=== PATIENT | female | born 1970 | race Caucasian/White ===

== ENCOUNTER → 2017-10-07 16:38 | Outpatient (CLI) | payer OTHER, SELFPAY | PROVIDERS: Family Provider Family Medicine; PCP Family Medicine; Visit Provider Nurse Practitioner Women's Health | DX: N76.0 Acute vaginitis (principal) | CPT/HCPCS: 87070; 87205 ==

== ENCOUNTER → 2017-10-08 08:52 | Outpatient (CLI) | payer OTHER, SELFPAY ==
[2017-10-08 10:15] LABS: Glucose 247 mg/dL (74-106)
[2017-10-08 10:17] LABS: Hemoglobin A1c 10.8 % (4.2-6.3)
== END ==
PROVIDERS: Family Provider Family Medicine; PCP Family Medicine; Visit Provider Nurse Practitioner Women's Health
DX: R81 Glycosuria (principal)
CPT/HCPCS: 36415; 82947; 83036

== ENCOUNTER → 2017-10-11 12:37 | Outpatient (CLI) | payer OTHER, SELFPAY ==
[2017-10-11 14:43] LABS: Microalbumin,Random Urine 22.2 mg/L (NO RANGE EST.); Microalbumin:Creatinine Ratio 10.7 mg/g CRE (<30 mg/g CRE)
[2017-10-11 14:44] LABS: AST(SGOT) 25 U/L (15-37); Alanine Aminotransfer ALT/SGPT 38 U/L (13-56); Albumin, Serum 3.7 g/dL (3.2-5.0); Alkaline Phosphatase 53 U/L (45-117); Anion Gap 6 (5-15); BUN 11 mg/dL (7-18); Bilirubin, Direct 0.18 mg/dL (0.00-0.30); Calcium,Total 8.5 mg/dL (8.5-10.1); Chloride 106 mmol/L (98-107); Cholesterol 118 mg/dL (200); Creatinine, Serum 0.85 mg/dL (0.55-1.02); EST Glomerular Filtration Rate 76 mL/min (>60); Est Glom Filt Rate - Afr Amer 92 mL/min (>60); Globulin 3.7 g/dL (2.2-4.2); Glucose 161 mg/dL (74-106); High Density Lipoprotein 48 mg/dL; Potassium 3.5 mmol/L (3.5-5.1); Protein, Total 7.4 g/dL (6.4-8.2); Sodium Level 140 mmol/L (136-145); Thyroid Stim Hormone (TSH) 1.85 uIU/mL (0.358-3.74); Triglycerides 52 mg/dL; Very Low Density Lipoprotein 10 mg/dL (5-40)
== END ==
PROVIDERS: Family Provider Family Medicine; PCP Family Medicine; Visit Provider Family Medicine
DX: E11.9 Type 2 diabetes mellitus without complications (principal)
CPT/HCPCS: 36415; 80048; 80061; 80076; 82043; 82570; 84443

== ENCOUNTER → 2018-01-07 10:22 | Outpatient (CLI) | payer OTHER, SELFPAY ==
[2018-01-07 12:03] LABS: Hemoglobin A1c 6.3 % (4.2-6.3)
== END ==
PROVIDERS: Family Provider Family Medicine; PCP Family Medicine; Visit Provider Nurse Practitioner
DX: E11.9 Type 2 diabetes mellitus without complications (principal)
CPT/HCPCS: 36415; 83036

== ENCOUNTER → 2019-08-03 09:23 | Outpatient (CLI) | payer OTHER, SELFPAY ==
[2017-12-23 13:32] VITALS: BMI 33.0
[2019-08-03 11:11] LABS: AST(SGOT) 14 U/L (15-37); Alanine Aminotransfer ALT/SGPT 22 U/L (13-56); Albumin, Serum 3.5 g/dL (3.2-5.0); Alkaline Phosphatase 51 U/L (45-117); Anion Gap 5 (5-15); BUN 18 mg/dL (7-18); BUN/Creat Ratio 26.4 RATIO (10-20); Calcium,Total 8.3 mg/dL (8.5-10.1); Chloride 110 mmol/L (98-107); Cholesterol 127 mg/dL (200); Creatinine, Serum 0.68 mg/dL (0.55-1.02); EST Glomerular Filtration Rate 97 mL/min (>60); Est Glom Filt Rate - Afr Amer 118 mL/min (>60); Globulin 3.5 g/dL (2.2-4.2); Glucose 199 mg/dL (74-106); High Density Lipoprotein 51 mg/dL; Sodium Level 140 mmol/L (136-145); Triglycerides 47 mg/dL; Very Low Density Lipoprotein 9 mg/dL (5-40)
[2019-08-03 11:16] LABS: Hemoglobin A1c 10.7 % (4.2-6.3)
== END ==
PROVIDERS: PCP Family Medicine; Referring Provider Family Medicine; Visit Provider Nurse Practitioner
DX: E11.9 Type 2 diabetes mellitus without complications (principal)
CPT/HCPCS: 36415; 80053; 80061; 82043; 83036

== ENCOUNTER 2020-02-27 19:44 | Inpatient (IN) | payer OTHER, SELFPAY ==
[2020-02-27 19:45] VITALS: BP 144/95; PULSE 121; RESP 18; TEMP 36.4; O2SAT 98; BMI 33.5
[2020-02-27] MEDS: 0.9% Normal Saline 1,000 ML 1000 ML IV ×2 (20:04→21:04)
[2020-02-27 20:23] LABS: Absolute Lymphocyte Count 0.91 X10^3/uL (0.83-4.51); Absolute Neutrophil Count 4.9 X10^3/uL (2.0-7.7); Basophil# 0.04 X10^3/uL; Basophil% 0.6 % (0-1); Eosinophil# 0.04 X10^3/uL; Eosinophils% 0.6 % (0-5); Hematocrit 36.2 % (37-47); Hemoglobin 10.6 g/dL (12.0-15.0); Lymphocyte # 0.91 X10^3/ul (4.0); Lymphocyte % 13.4 % (19-41); Mean Corp Hgb Conc 29.3 g/dL (32-36); Mean Corpuscular Hgb 22.6 pg (27.0-32.0); Mean Corpuscular Volume 77.2 fL (81-99); Mean Platelet Vol. 9.3 fl (6.2-12.0); Monocyte# 0.91 X10^3/uL; Monocyte% 13.4 % (0-10); NRBC Flagged by Analyzer 0 % (0-5); Neutrophil # 4.89 X10^3/uL (2.7-7.7); Neutrophil % 71.7 % (47-70); Platelet Count 260 K/mm3 (150-450); RBC Distribution Width CV 15.8 % (11.6-14.6); RBC Distribution Width SD 42.5 fl (35.1-43.9); Red Blood Count 4.69 M/mm3 (4.2-5.4); White Blood Count 6.8 K/mm3 (4.4-11.0)
[2020-02-27] MEDS: Ondansetron 4 MG/2 ML Vial IV (20:24)
[2020-02-27 20:36] LABS: Bedside Glucose 252 mg/dL (70-110)
[2020-02-27 20:37] LABS: ALB/GLOB Ratio 0.8 RATIO (0.9-2.4); AST(SGOT) 380 U/L (15-37); Alanine Aminotransfer ALT/SGPT 581 U/L (13-56); Albumin, Serum 3.6 g/dL (3.2-5.0); Alkaline Phosphatase 190 U/L (45-117); Anion Gap 7 (5-15); BUN 9 mg/dL (7-18); BUN/Creat Ratio 13.5 RATIO (10-20); Calcium,Total 8.7 mg/dL (8.5-10.1); Chloride 104 mmol/L (98-107); Creatinine, Serum 0.67 mg/dL (0.55-1.02); EST Glomerular Filtration Rate 100 mL/min (>60); Est Glom Filt Rate - Afr Amer 121 mL/min (>60); Estimated Creatinine Clearance 95.08 ml/min; Globulin 4.3 g/dL (2.2-4.2); Glucose 234 mg/dL (74-106); Lipase 7043 U/L (73-393); Potassium 3.4 mmol/L (3.5-5.1); Protein, Total 7.9 g/dL (6.4-8.2); Sodium Level 137 mmol/L (136-145)
--- NOTE | 2020-02-27 20:57 | ED.VISSUMM ---
- ER Visit Summary Date of Service: 02/27/20 Chief Complaint: Nausea and vomiting History of Present Illness: The patient is a [address] Lee. She reports she is been nauseated and vomiting over the past 3 days. States this is occurring approximately 2 times a day. No blood in her emesis. She reports she is a cramping epigastric pain was 10 at 10 at worst and 4-10 currently. Is worsened by nothing. She relieved by Ex-Lax. She reports that she feels constipated. She has small bowel movements sporadically. Last of these was yesterday. No blood in her stools. No dysuria or frequency. Patient reports has had similar symptoms previously with constipation. She denies any fatty food intolerance. She rarely drinks alcohol. Physical Examination: Vitals: Stable. Afebrile. General: Well-nourished and well-developed. Head: Normocephalic atraumatic. Neck: Supple, no lymphadenopathy. No JVD. Nontender. Cardiovascular: Tachycardic regular rhythm. No murmurs. Respiratory: No respiratory distress. Clear to auscultation bilaterally. Abdominal: Soft, moderate epigastric tenderness. No right upper quadrant tenderness palpation. No Diaz sign. Nondistended, normal bowel sounds. No guarding, rebound, or peritoneal signs. Back: Nontender. Extremities: Nontender, no edema. Skin: Normal color, no rash. Neurologic: Alert and oriented ?3. Cranial nerves II through XII are intact. Normal strength and sensation. Psych: Normal affect. Test Results: CBC shows an H&H 10.6 and 36.2, 7 neutrophils 72, 1/13, monocytes 13. Chem-7 shows potassium 3.4 and glucose 234. LFTs show globulin of 4.3, total bili of 3.10, alk phos 190, ALT of 581, AST of 380. Lipase is 7043. Clinical Impression(s) from Imaging Studies Gallbladder Ultrasound 02/27/20 21:19 IMPRESSION: Gallstones and sludge within the gallbladder with no associated gallbladder wall thickening, pericholecystic fluid or reported sonographic Diaz''s sign. Electronically Signed: Frances Davidson MD at 23:21 EDT Tel , Service support , Emergency Department Course and Treatment: Patient was given 2 L of normal saline. She was given Zofran IV. She refused pain medications. She was given a dose of cefotetan IV. Treatment Plan: Patient was discussed with Dr. Botello and Dr. Riddle. Her labs are consistent with choledocholithiasis. She will be admitted to the hospital with plan to take her to the operating room tomorrow morning. Disposition: Admitted in improved condition. Impression: 1. Pancreatitis. 2. Choledocholithiasis. This note was generated with [employer] dictation software. It may contain incorrect words, spelling, and punctuation that were not noted in review of the chart prior to signing ED Disposition - Plan for ED Patient: Disposition: Acute Care Hospital [facility]
--- NOTE | 2020-02-27 21:09 | PCM.HP.STD ---
Problem List (1) Acute gallstone pancreatitis Status: Acute (2) Type 2 diabetes mellitus without complication, without long-term current use of insulin Status: Chronic Comment: Doing very well. Diet and exercise as discussed. Is pleased as well as she should be with her progress. no change is needed.Will update lab. contnue with current regimen. BP in range History of Present Illness Date of Admission: 02/27/20 Chief Complaint: Abdominal pain for 3 days The patient is a 49 year old F with history of type 2 diabetes mellitus on metformin came to ER with severe abdominal pain mainly in epigastrium for 3 days. Patient has history of intermittent abdominal discomfort for past 3 to 4 months, mild which she ignores and does not remember well. But for past 3 days it has been severe, intermittent 7-10/10 intensity with radiation to back. She denies regular alcohol drinking habit. She never had gallbladder issues in the past. In the ER, she was found tachycardic, heart rate 121 bpm, blood pressure 144/95 no fever. She denies known exposure to COVID-19 person or attending large gathering or travel. No fever, cough or shortness of breath. Significant abnormal labs in the ER are live page 7043, total bili 3.1, ALT 591, AST 380, alkaline phosphatase 190 and glucose 234. K3.4. No leukocytosis or thrombocytopenia. H&H 10.6/36. Discussed with the surgeon Dr. Botello and advised urgent right upper quadrant sonogram and ERCP tomorrow morning. [] Past Medical History Past Medical History (Chronic Problems): Chronic Problems (Last Reviewed 12/23/17 @ 13:31 by Rolanda Vieyra) Type 2 diabetes mellitus without complication, without long-term current use of insulin (Chronic) Doing very well. Diet and exercise as discussed. Is pleased as well as she should be with her progress. no change is needed.Will update lab. contnue with current regimen. BP in range Medical History: Medical History (Last Reviewed 12/23/17 @ 13:31 by Rolanda Vieyra) Chronic headaches R51 Hearing problem H91.90 Seasonal allergies J30.2 Type 2 diabetes mellitus E11.9 Dx : 10/16 Last exacerbation : DKA : never Hypoglycemic episode : never ER visit : never Vision problem H54.7 Allergies No Known Allergies Allergy (Unverified 02/27/20 19:48) Home Medications: Ambulatory Orders Medication Instructions Recorded metformin 500 mg tablet 500 mg PO BID 11/07/17 Smoking Status: Never smoker Tobacco Use: Non-smoker Alcohol: Rare Drugs: None - *Family History Paternal Family History: Family History (Last Reviewed 12/23/17 @ 13:31 by Rolanda Vieyra) Mother Diabetes Heart disease Arthritis CVA (cerebral vascular accident) Brother Diabetes Father CVA (cerebral vascular accident) History Items: No pertinent history - No pertinent history of GI issues including CA colon, CA pancreas/liver in first-degree family relative Review of Systems Constitutional: Reports: Chills. Denies: Fever HEENT: Denies: Head Aches, Sinus Congestion, Sinus Drainage Cardiovascular: Denies: Chest Pain, Palpitations Respiratory: Denies: Cough, Shortness of breath at rest, Sputum production Gastrointestinal: Reports: Abdominal Pain, Constipation - Patient history of on and off constipation, chronic in nature, Nausea, Vomiting - Intermittent vomiting, bilious in nature for 2 to 3 days. Denies: Diarrhea, Hematemesis, Hematochezia, Melena Genitourinary: Denies: Dysuria, Frequency, Hesitancy Musculoskeletal: Denies: Joint Pain, Joint Tenderness Skin: Denies: Rash, Wounds Neurological: Denies: Numbness, Tingling, Focal weakness Psychiatric: Denies: Anxiety, Depression, Homicidal Ideations, Suicidal Ideations Hematologic/ Lymphatic: Denies: Easy Bruising, Easy Bleeding VTE Information - Inpt Only VTE Present on Admission: No VTE Mechan Device Prophylaxis: SCD's VTE Pharm Prophylaxis ordered?: Yes Patient Problems: Active and Suspected Problems (Last Reviewed 12/23/17 @ 13:31 by Rolanda Vieyra) Acute gallstone pancreatitis (Acute) - Physical Exam Vitals/I&O's: Vital Signs Temp Pulse Resp BP Pulse Ox 97.6 F L 121 H 18 144/95 H 98 02/27/20 19:45 02/27/20 19:45 02/27/20 19:45 02/27/20 19:45 02/27/20 19:45 Oxygen Delivery Method Room Air Weight: 207 lb 10.807 oz Body Mass Index (BMI) 33.5 Finger Stick Blood Glucose 252 General: Alert, Oriented x3, Cooperative HEENT: Atraumatic, PERRLA, EOMI, Normocephalic Neck: Supple, No JVD, Negative Carotid Bruits Lungs: Clear to auscultation, Normal air movement, No rhonchi, No wheeze, No rales Cardiovascular: Regular Rhythm, Normal S1, Normal S2, No murmurs, Tachycardic Abdomen: Bowel Sounds Present, Soft, Hypoactive Bowel Sounds, Tender - Tenderness present in epigastrium and right upper quadrant on deep palpation. Extremities: No edema, Capillary Refill Less than 3 Seconds Skin: No rashes, No breakdown Musculoskeletal: No Tenderness to Palpation of Joints or Extremities Neurological: Cranial nerves II-XII grossly intact, Deep Tendon Reflexes 2+/4 and Symmetrical, Neuro grossly intact, Motor Exam 5/5 strength throughout Psych/Mental Status: Normal Affect, Appropriate Laboratory Results 02/27/20 20:12: WBC 6.8, RBC 4.69, Hgb 10.6 L, Hct 36.2 L, MCV 77.2 L, MCH 22.6 L, MCHC 29.3 L, RDW Std Deviation 42.5, RDW Coeff of Munir 15.8 H, Plt Count 260, MPV 9.3, Immature Gran % (Auto) 0.300, Neut % (Auto) 71.7 H, Lymph % (Auto) 13.4 L, [place] % (Auto) 13.4 H, Eos % (Auto) 0.6, Baso % (Auto) 0.6, Absolute Neuts (auto) 4.9, Absolute Lymphs (auto) 0.91, Nucleated RBC % 0 02/27/20 20:12: Sodium 137, Potassium 3.4 L, Chloride 104, Carbon Dioxide 26.0, Anion Gap 7, BUN 9, Creatinine 0.67, Estim Creat Clear Calc 95.08, Est GFR (MDRD) Af Amer 121, Est GFR (MDRD) Non-Af 100, BUN/Creatinine Ratio 13.5, Glucose 234 H, Calcium 8.7, Total Bilirubin 3.10 H, AST 380 H, ALT 581 H, Alkaline Phosphatase 190 H, Total Protein 7.9, Albumin 3.6, Globulin 4.3 H, Albumin/Globulin Ratio 0.8 L, Lipase 7043 H 02/27/20 20:28: POC Glucose 252 H Current Medications Sodium Chloride () 1,000 mls @ 1,000 mls/hr IV .Q1H PENNY Stop: 02/27/20 22:04 Assessment/Plan All Active Problems (Last Reviewed 12/23/17 @ 13:31 by Rolanda Vieyra) Acute gallstone pancreatitis (Acute) The patient is a 49 year old F with history of type 2 diabetes mellitus on metformin came to ER with severe abdominal pain mainly in epigastrium for 3 days, lab findings consistent with acute pancreatitis. 1. Acute gall stone pancreatitis: [facility] Aggressive IV fluid hydration with normal saline 150 mils per hour after 2 L of normal saline bolus. Discussed with the surgeon Dr. Botello and advised urgent right upper quadrant sonogram and ERCP tomorrow morning about 7:30 AM. Patient needs to go to the OR with antibiotics cefotetan 2 g. Keep patient n.p.o. CBC and CMP tomorrow a.m. 2. Diabetes mellitus type 2, uncontrolled: Patient noticed her sugars were high for last 3 days. Last A1c 10.7% in August 2019. Accu-Chek every 6 hourly while n.p.o. with Humalog sliding scale coverage. A1c tomorrow a.m. VT prophylaxis: Heparin 5000 unit subcutaneous 1 dose now. Lovenox 40 mg subcu daily after the procedure in the evening tomorrow a.m. Bilateral SCD [] Inpatient E&M: 10029 Init Hosp L3
--- NOTE | 2020-02-27 21:19 | US_ITS ---
STUDY: ABDOMINAL ULTRASOUND - RIGHT UPPER QUADRANT REASON FOR VISIT: Female, 49 years old Cholecystitis, nausea/ vomiting x 3 days TECHNIQUE: Ultrasound evaluation of the right upper quadrant was performed with real-time and static schmidt-scale imaging. TECHNICAL QUALITY: Adequate. COMPARISON: None. FINDINGS: Liver: The liver measures 15.0 cm. There is normal echogenicity of the liver. The bile ducts are within normal limits. There is hepatic color flow. The direction of portal flow is hepatopetal. There is no demonstrated mass lesion. Gallbladder: Normal distended gallbladder. The gallbladder wall measures 1.9 mm. There is a negative sonographic Diaz''s sign. There is no pericholecystic fluid. There are gallstones and sludge within the gallbladder. Common Bile Duct (C.B.D.): The common bile duct measures 5.7 mm. Pancreas: Normal size of the head and body of the pancreas. There is obscuration of the tail the pancreas secondary to overlying bowel gas. There is normal echogenicity of the pancreas. There is no demonstrated pancreatic mass or cyst. Right Kidney: Normal size of the right kidney. The right kidney measures 12.1 cm in length. Normal renal cortex. There is no demonstrated renal mass or cyst. There is no right hydronephrosis. US/Gallbladder IMPRESSION: Gallstones and sludge within the gallbladder with no associated gallbladder wall thickening, pericholecystic fluid or reported sonographic Diaz''s sign. Electronically Signed: Frances Davidson MD at 23:21 EDT Tel , Service support ,
[2020-02-27 21:47] VITALS: BP 142/75; PULSE 114; RESP 18; O2SAT 99
[2020-02-27 22:11] LABS: Magnesium 1.9 mg/dL (1.6-2.6)
[2020-02-27 23:38] VITALS: BP 119/62; PULSE 90; RESP 20; TEMP 36.9; O2SAT 98
[2020-02-28] VITALS (11 sets, daily range): BP systolic 98–121; BP diastolic 50–75; PULSE 62–94; RESP 16–18; TEMP 35.8–37.2; O2SAT 2–100; BMI 33.5; BMI 32.8; BMI 33.7
[2020-02-28] MEDS: 0.9% Normal Saline 1,000 ML 999 ML IV (00:12)
[2020-02-28 00:15] LABS: Bedside Glucose 200 mg/dL (70-110)
[2020-02-28] MEDS: Insulin Lispro 100 UNIT/ML INSULN.PEN SC ×4 (00:38→17:04)
[2020-02-28] MEDS: Heparin Injection (Vial) 5,000 UNIT/ML VIAL 5000 UNIT SC (00:39)
[2020-02-28] MEDS: 0.9% Saline Lock 10 ML Syringe IV ×2 (00:45→05:52)
[2020-02-28] MEDS: 0.9% Normal Saline 1,000 ML 150 ML IV ×4 (01:10→22:13)
[2020-02-28 04:41] LABS: Internal QC Validated? YES +Cl - CLEAR BKGD; Pregnancy, Urine Negative Negative
[2020-02-28 04:42] LABS: Absolute Lymphocyte Count 1.24 X10^3/uL (0.83-4.51); Absolute Neutrophil Count 3.8 X10^3/uL (2.0-7.7); Basophil# 0.04 X10^3/uL; Basophil% 0.7 % (0-1); Eosinophil# 0.03 X10^3/uL; Eosinophils% 0.5 % (0-5); Hematocrit 33.3 % (37-47); Hemoglobin 9.5 g/dL (12.0-15.0); Lymphocyte # 1.24 X10^3/ul (4.0); Lymphocyte % 20.8 % (19-41); Mean Corp Hgb Conc 28.5 g/dL (32-36); Mean Corpuscular Hgb 22.4 pg (27.0-32.0); Mean Corpuscular Volume 78.5 fL (81-99); Mean Platelet Vol. 9.7 fl (6.2-12.0); Monocyte# 0.78 X10^3/uL; Monocyte% 13.1 % (0-10); NRBC Flagged by Analyzer 0 % (0-5); Neutrophil # 3.84 X10^3/uL (2.7-7.7); Neutrophil % 64.6 % (47-70); Platelet Count 237 K/mm3 (150-450); RBC Distribution Width CV 15.9 % (11.6-14.6); RBC Distribution Width SD 44.6 fl (35.1-43.9); Red Blood Count 4.24 M/mm3 (4.2-5.4)
[2020-02-28 05:07] LABS: ALB/GLOB Ratio 0.8 RATIO (0.9-2.4); AST(SGOT) 283 U/L (15-37); Alanine Aminotransfer ALT/SGPT 437 U/L (13-56); Albumin, Serum 2.8 g/dL (3.2-5.0); Alkaline Phosphatase 158 U/L (45-117); Anion Gap 7 (5-15); BUN 5 mg/dL (7-18); BUN/Creat Ratio 10.1 RATIO (10-20); Calcium,Total 7.5 mg/dL (8.5-10.1); Chloride 110 mmol/L (98-107); Cholesterol 131 mg/dL (200); EST Glomerular Filtration Rate 141 mL/min (>60); Est Glom Filt Rate - Afr Amer 170 mL/min (>60); Estimated Creatinine Clearance 132.35 ml/min; Globulin 3.5 g/dL (2.2-4.2); Glucose 195 mg/dL (74-106); High Density Lipoprotein 45 mg/dL; Potassium 3.3 mmol/L (3.5-5.1); Protein, Total 6.3 g/dL (6.4-8.2); Sodium Level 139 mmol/L (136-145); Triglycerides 109 mg/dL; Very Low Density Lipoprotein 22 mg/dL (5-40)
[2020-02-28 05:55] LABS: International Normalized Ratio 1.2; Partial Thromboplast Time 27.2 Seconds (24.1-36.2); Prothrombin Time (Protime)PT. 14.2 SECONDS (11.7-14.9)
--- NOTE | 2020-02-28 06:00 | EKG12_ITS ---
Test Reason : AM EKG Blood Pressure : / mmHG Vent. Rate : 096 BPM Atrial Rate : 096 BPM P-R Int : 148 ms QRS Dur : 094 ms QT Int : 382 ms P-R-T Axes : 069 -08 037 degrees QTc Int : 482 ms Normal sinus rhythm Prolonged QT Abnormal ECG When compared with ECG of 14-AUG-2006 19:23, Premature atrial complexes are no longer Present Confirmed by LORNE LONGO, PRESTON ([id number]), advertising editor MERE PATEL ([id number]) on 03/11/2020 1:36:06 PM Referred By: Arun Riddle Confirmed By:CALEB PRADHAN MD
[2020-02-28 06:40] LABS: Bedside Glucose 197 mg/dL (70-110)
--- NOTE | 2020-02-28 07:09 | CON.PCM_ITS ---
Problem List (1) Acute gallstone pancreatitis Status: Acute Reason for Consult Date of Consultation: 02/28/20 Reason for Consultation: Gallstone pancreatitis History of Present Illness: The patient is a 49 year old F who presents with several day history of epigastric soreness. She says that this morning is about the same as yesterday evening but that is improved from yesterday afternoon. She is currently not having any nausea or vomiting. She says she has never had gallstone issues in the past. She has no fevers or chills. She denies any cough or COVID contacts. Past Medical History Past Medical History (Chronic Problems): Chronic Problems (Last Reviewed 12/23/17 @ 13:31 by Rolanda Vieyra) Type 2 diabetes mellitus without complication, without long-term current use of insulin (Chronic) Doing very well. Diet and exercise as discussed. Is pleased as well as she should be with her progress. no change is needed.Will update lab. contnue with current regimen. BP in range Medical History: Medical History (Last Reviewed 12/23/17 @ 13:31 by Rolanda Vieyra) Chronic headaches R51 Hearing problem H91.90 Seasonal allergies J30.2 Type 2 diabetes mellitus E11.9 Dx : 10/16 Last exacerbation : DKA : never Hypoglycemic episode : never ER visit : never Vision problem H54.7 Allergies No Known Allergies Allergy (Unverified 02/27/20 19:48) Home Medications: Ambulatory Orders Medication Instructions Recorded metformin 500 mg tablet 500 mg PO BID 11/07/17 Surgical History: no surgical history Smoking Status: Never smoker Tobacco Use: Non-smoker Alcohol: Rare Drugs: None - *Family History Paternal Family History: Family History (Last Reviewed 12/23/17 @ 13:31 by Rolanda Vieyra) Mother Diabetes Heart disease Arthritis CVA (cerebral vascular accident) Brother Diabetes Father CVA (cerebral vascular accident) History Items: No pertinent history - No pertinent history of GI issues including CA colon, CA pancreas/liver in first-degree family relative Review of Systems Constitutional: Denies: Anorexia, Fever Eyes: Denies: Blurred vision HEENT: Denies: Difficulty Swallowing Cardiovascular: Denies: Chest Pain Respiratory: Denies: Cough, Shortness of Breath Gastrointestinal: Reports: Abdominal Pain. Denies: Hematemesis, Hematochezia, Nausea, Melena, Vomiting Genitourinary: Denies: Dysuria, Frequency Neurological: Denies: Balance problems Psychiatric: Denies: Anxiety, Depression Hematologic/ Lymphatic: Denies: Anemia Patient Problems: Active and Suspected Problems (Last Reviewed 12/23/17 @ 13:31 by Rolanda Vieyra) Acute gallstone pancreatitis (Acute) - Physical Exam Vitals/I&O's: Vital Signs Temp Pulse Resp BP Pulse Ox 98.1 F 78 16 114/58 L 94 02/28/20 05:34 02/28/20 05:34 02/28/20 05:34 02/28/20 05:34 02/28/20 05:34 Oxygen Delivery Method Room Air Weight: 209 lb 7.026 oz Body Mass Index (BMI) 32.8 Finger Stick Blood Glucose 252 Intake and Output for Last 24 Hours 02/26/20 02/27/20 02/28/20 23:59 23:59 23:59 Intake Total 1999 1000 / 1000 Output Total 400 / 400 Balance 1999 600 / 600 General: Alert, Oriented x3 Neck: No JVD Lungs: Normal air movement Cardiovascular: Regular rate, Regular Rhythm Abdomen: Soft, Non-Distended, Tender - Mild tenderness to deep palpation in the epigastric region Musculoskeletal: No Muscle Wasting Neurological: Cranial nerves II-XII grossly intact Psych/Mental Status: Normal Affect, Appropriate Laboratory Results 02/27/20 20:12: WBC 6.8, RBC 4.69, Hgb 10.6 L, Hct 36.2 L, MCV 77.2 L, MCH 22.6 L, MCHC 29.3 L, RDW Std Deviation 42.5, RDW Coeff of Munir 15.8 H, Plt Count 260, MPV 9.3, Immature Gran % (Auto) 0.300, Neut % (Auto) 71.7 H, Lymph % (Auto) 13.4 L, [place] % (Auto) 13.4 H, Eos % (Auto) 0.6, Baso % (Auto) 0.6, Absolute Neuts (auto) 4.9, Absolute Lymphs (auto) 0.91, Nucleated RBC % 0 02/27/20 20:12: Sodium 137, Potassium 3.4 L, Chloride 104, Carbon Dioxide 26.0, Anion Gap 7, BUN 9, Creatinine 0.67, Estim Creat Clear Calc 95.08, Est GFR (MDRD) Af Amer 121, Est GFR (MDRD) Non-Af 100, BUN/Creatinine Ratio 13.5, Glucose 234 H, Calcium 8.7, Total Bilirubin 3.10 H, AST 380 H, ALT 581 H, Alkaline Phosphatase 190 H, Total Protein 7.9, Albumin 3.6, Globulin 4.3 H, Albumin/Globulin Ratio 0.8 L, Lipase 7043 H 02/27/20 20:12: Magnesium 1.9 02/27/20 20:28: POC Glucose 252 H 02/28/20 00:07: POC Glucose 200 H 02/28/20 04:02: Urine Test Negative 02/28/20 04:10: WBC 6.0, RBC 4.24, Hgb 9.5 L, Hct 33.3 L, MCV 78.5 L, MCH 22.4 L , MCHC 28.5 L, RDW Std Deviation 44.6 H, RDW Coeff of Munir 15.9 H, Plt Count 237, MPV 9.7, Immature Gran % (Auto) 0.300, Neut % (Auto) 64.6, Lymph % (Auto) 20.8, [place] % (Auto) 13.1 H, Eos % (Auto) 0.5, Baso % (Auto) 0.7, Absolute Neuts (auto) 3.8, Absolute Lymphs (auto) 1.24, Nucleated RBC % 0 02/28/20 04:10: Sodium 139, Potassium 3.3 L, Chloride 110 H, Carbon Dioxide 22.0, Anion Gap 7, BUN 5 L, Creatinine 0.50 L, Estim Creat Clear Calc 132.35, Est GFR (MDRD) Af Amer 170, Est GFR (MDRD) Non-Af 141, BUN/Creatinine Ratio 10.1, Glucose 195 H, Calcium 7.5 L, Total Bilirubin 3.00 H, AST 283 H, ALT 437 H , Alkaline Phosphatase 158 H, Total Protein 6.3 L, Albumin 2.8 L, Globulin 3.5, Albumin/Globulin Ratio 0.8 L, Triglycerides 109, Cholesterol 131, LDL Cholesterol 64, VLDL Cholesterol 22, HDL Cholesterol 45 02/28/20 04:10: Hemoglobin A1c Pending 02/28/20 04:10: PT 14.2, INR 1.2, APTT 27.2 02/28/20 05:37: POC Glucose 197 H Clinical Impression(s) from Imaging Studies Gallbladder Ultrasound 02/27/20 21:19 IMPRESSION: Gallstones and sludge within the gallbladder with no associated gallbladder wall thickening, pericholecystic fluid or reported sonographic Diaz''s sign. Electronically Signed: Frances Davidson MD at 23:21 EDT Tel , Service support , Current Medications Acetaminophen (Tylenol) 650 mg PO Q6H PRN PRN PRN Reason: Pain Score 1-10/Temp > 100.7 F Albuterol Sulfate (Ventolin Aerosols) 2.5 mg INHALATION Q2H PRN PRN PRN Reason: Shortness of Breath/Wheezing Dextrose (D50w Syringe) 0 gm IV X1 PRN; Protocol PRN Reason: Hypoglycemia Enoxaparin Sodium (Lovenox) 40 mg SC DAILY PENNY Glucagon () 1 mg IM .X1 PRN PRN Reason: Hypoglycemia Sodium Chloride () 1,000 mls @ 150 mls/hr IV .Q6H40M [facility] Last Admin: 02/28/20 01:10 Dose: 150 mls/hr Documented by: Cefotetan Disodium 2 gm/ (Sodium Chloride) 100 mls @ 200 mls/hr IV SEND TO OR W/PATIENT ONE Stop: 02/28/20 07:59 Insulin Human Lispro (Humalog Kwikpen (Bkc)) 0 unit SC Q6 PENNY; Protocol Last Admin: 02/28/20 05:40 Dose: 2 units Documented by: Morphine Sulfate () 2 mg IV Q3H PRN PRN PRN Reason: Pain Score 6-10/10 Ondansetron HCl (Zofran) 4 mg IV Q8H PRN PRN PRN Reason: NAUSEA/VOMITING Oxycodone HCl (Oxyir) 5 mg PO Q4H PRN PRN PRN Reason: Pain Score 4-5/10 Prochlorperazine Edisylate (Compazine Iv) 5 mg IV Q4H PRN PRN PRN Reason: Breakthrough nausea/vomiting Sodium Chloride () 10 - 40 ml IV UD PRN PRN Reason: SALINE FLUSH Last Admin: 02/28/20 05:52 Dose: 10 ml Documented by: Assessment/Plan All Active Problems (Last Reviewed 12/23/17 @ 13:31 by Rolanda Vieyra) Acute gallstone pancreatitis (Acute) 49-year-old female with acute gallstone pancreatitis 1. The patient describes 3 days of epigastric pain. The patient's labs show elevated lipase as well as elevated LFTs. Ultrasound shows gallstones with sludge. The patient likely has gallstone pancreatitis. LFTs are still elevated this morning I recommended ERCP to clear the duct. I also discussed laparoscopic cholecystectomy tomorrow she is feeling better and her lipase is improving. 2. I discussed ERCP in detail with the patient this morning. I discussed the risks such as bleeding, infection, perforation of bile duct or bowel, worsening of pancreatitis. The patient understands the risks x1 to proceed. Jimmy Botello MD Pager: [facility] [address] [place] [address], [address] [place] [phone] Office:
[2020-02-28 07:11] LABS: Hemoglobin A1c 11.8 % (3.8-5.6)
[2020-02-28] MEDS: Lactated Ringers 1,000 ML 100 ML IV (07:30)
--- NOTE | 2020-02-28 07:32 | NURSING ---
Pt if off of Floor for ERCP w/Dr. Botello.
--- NOTE | 2020-02-28 07:40 | RAD_ITS ---
PROCEDURE: ERCP DATE OF EXAMINATION: INDICATION: Female, 49 years old. Abdominal pain PHYSICIAN: FLUOROSCOPY TIME (if supplied): (2:16) minutes/seconds RADIATION DOSAGE (If Supplied By Facility): CTDIvol = ( 31.23 ) mGy, DLP = ( ) mGycm Findings: 2 images from an ERCP demonstrate no evidence of filling defect to suggest common bile duct stone. No definite stricture or dilatation. RAD/ERCP Biliary/Pancreas IMPRESSION: Fluoroscopy during ERCP. Electronically Signed: Casper José MD at 9:21 EDT Tel , Service support ,
--- NOTE | 2020-02-28 08:00 | GALL_PTH ---
PATIENT: CARMELA FELICIANO LOC: MS3 U#:[id number] AGE/SX: 49/F [place] [facility] [place]: Dr. Shayan Arriola MD : 1970 BED: 1 DIS: 03/01/2020 SPEC #: [id number] RECD: 02/29/20 14:02 STATUS: KIMBERLY REBEKAH #: [id number] MAGNOLIA: 02/28/20 08:[address]: Jimmy Botello DEPT: SURGICAL PATHOLOGY RECD BY: Cody Aviles ENTERED: 03/01/20 09:11 SP TYPE: GALLBLCAROLEE THANIA DR: MD Dr. Shayan Davalos MD Dr. Prakash Chand, MD Tissues: Gallbladder, NOS Procedures: Surgery Specimen Level III HEADER OPERATION: ERCP PRE-OP DIAGNOSIS: Stone TISSUE SUBMITTED: Gallbladder MICROSCOPIC DIAGNOSIS Gallbladder, cholecystectomy: Chronic cholecystitis and cholelithiasis. Benign pericystic lymph node. AM:cali 03/02/20 MICROSCOPIC DESCRIPTION Slides are reviewed. GROSS DESCRIPTION Received is one container labeled with the patient's name and designated gallbladder. The specimen consists of a gallbladder measuring 8.5 cm in length and up to 4 cm in diameter. The external surface is pink-soares, smooth and glistening for the most part. Focally it is granular, hemorrhagic and contains cautery artifact. The gallbladder contains green-yellow mucoid bile and multiple brown, multifaceted to round irregular stones measuring in aggregate 5 x 5 x 2 cm and 0.2 to 1 cm in greatest dimension. The mucosa is bile-stained and without any mass lesions. The gallbladder wall measures up to 0.7 cm in thickness. Sections reveal edematous cut surfaces. [employer] Paste Mixer Operator sections from the gallbladder and the cystic duct are submitted in one cassette. / SJ:cali 03/01/20 TC:3 CPT: 36463
--- NOTE | 2020-02-28 08:18 | PN_ITS ---
Progress Note Performed ERCP today with a small stone removed. I suspect she passed a large stone earlier as the ampulla was dilated and there was bile present in the duodenum. Plan for laparoscopic cholecystectomy tomorrow. Patient may have clear liquids afternoon if not having any signs of worsening of pancreatitis. N.p.o. after midnight. Jimmy Botello MD Pager: [facility] [address] [place] [address], [address] [place] [address] Office: [facility] Vital Signs/Narrative: Vital Signs Temp Pulse Resp BP Pulse Ox 02/28/20 07:26 95 02/28/20 05:34 98.1 F 78 16 114/58 L 94 02/28/20 04:49 16 96
--- NOTE | 2020-02-28 08:23 | OP.CCLET_ITS ---
02/28/2020 Elva Lee [address] [place] [address] Re : ERCP procedure for Madhavi Scott Dear Dr. Lee This procedure was performed on Friday, February 28, 2020. My impressions and recommendations are as follows: Impressions : - The major papilla appeared normal. - A biliary sphincterotomy was performed. - The biliary tree was swept and sludge was found. Recommendations : - [facility]. - Clear liquid diet. - Continue present medications. My findings are described in the full procedure note, which is enclosed. If I can be of further assistance, please feel free to contact me at Doctor phone number(s): , Work: . Sincerely, Jimmy Botello MD 02/28/2020 8:21:34 AM This report has been signed electronically.
--- NOTE | 2020-02-28 08:23 | OP.ERCP_ITS ---
Patient Name: Madhavi Scott Procedure Date: 02/28/2020 7:17 AM Date of : 1970 Age: 49 Procedure: ERCP Indications: Elevated liver enzymes, Acute pancreatitis Providers: Jimmy Botello MD Referring MD: Arun Riddle Medicines: General Anesthesia Patient Profile: This is a 49 year old female. Refer to note in patient chart for documentation of history and physical. Complications: No immediate complications. Estimated blood loss: Minimal. Procedure: Pre-Anesthesia Assessment: - Prior to the procedure, a History and Physical was performed, and patient medications and allergies were reviewed. The patient's tolerance of previous anesthesia was also reviewed. The risks and benefits of the procedure and the sedation options and risks were discussed with the patient. All questions were answered, and informed consent was obtained. Prior Anticoagulants: The patient has taken no previous anticoagulant or antiplatelet agents. After reviewing the risks and benefits, the patient was deemed in satisfactory condition to undergo the procedure. After obtaining informed consent, the scope was passed under direct vision. Throughout the procedure, the patient's blood pressure, pulse, and oxygen saturations were monitored continuously. The [id number] endoscope was introduced through the mouth, and advanced to the duodenum and used to inject contrast into the bile duct. The ERCP was accomplished without difficulty. The patient tolerated the procedure well. Scope In: 7:55:13 AM Scope Out: 8:06:29 AM Total Procedure Duration Time 0 hours 11 minutes 16 seconds Findings: The major papilla was normal. A 0.035 inch x 260 cm straight Dreamwire was passed into the biliary tree. The sphincterotome was passed over the guidewire and the bile duct was then deeply cannulated. Contrast was injected. Biliary sphincterotomy was made with a monofilament sphincterotome using ERBE electrocautery. There was no post-sphincterotomy bleeding. The biliary tree was swept with a 12 mm balloon starting at the bifurcation. Sludge was swept from the duct. The endoscope was withdrawn from the patient. Impression: - The major papilla appeared normal. - A biliary sphincterotomy was performed. - The biliary tree was swept and sludge was found. Recommendation: - [facility]. - Clear liquid diet. - Continue present medications. Procedure Code(s): --- Professional --- 23900, Endoscopic retrograde cholangiopancreatography (ERCP); with sphincterotomy/papillotomy Diagnosis Code(s): --- Professional --- R74.8, Abnormal levels of other serum enzymes K85.90, Acute pancreatitis without necrosis or infection, unspecified CPT copyright 2017 [employer]. All rights reserved. The codes documented in this report are preliminary and upon airplane pilot photogrammetry review may be revised to meet current compliance requirements. Jimmy Botello MD 02/28/2020 8:21:34 AM This report has been signed electronically. Number of Addenda: 0 Note Initiated On: 02/28/2020 7:17 AM
[2020-02-28 08:35] LABS: Bedside Glucose 179 mg/dL (70-110)
--- NOTE | 2020-02-28 08:53 | NURSING ---
Arrived back to floor.
[2020-02-28] MEDS: Potassium Chloride 10mEq/100mL 10 MEQ/100 ML IV.SOLN. 100 MEQ IV BOLUS ×4 (09:20→12:55)
[2020-02-28 12:00] LABS: Bedside Glucose 187 mg/dL (70-110)
--- NOTE | 2020-02-28 12:03 | PN_ITS ---
<Francy Kwong - Last Filed: 02/28/20 12:07> Patient Problems: Active and Suspected Problems (Last Reviewed 12/23/17 @ 13:31 by Rolanda Vieyra) Acute gallstone pancreatitis (Acute) Subjective: Patient seen and examined. Denies abdominal pain pain, nausea, vomiting. Denies fever, chills. Requesting ice chips. - Physical Exam Vitals/I&O's: Vital Signs Temp Pulse Resp BP Pulse Ox 98.1 F 90 16 121/61 H 96 02/28/20 09:10 02/28/20 09:10 02/28/20 09:10 02/28/20 09:10 02/28/20 09:10 Oxygen Flow Rate (L/min) 2 Oxygen Delivery Method Room Air Weight: 215 lb 8 oz Body Mass Index (BMI) 33.7 Finger Stick Blood Glucose 179 Intake and Output for Last 24 Hours 02/26/20 02/27/20 02/28/20 23:59 23:59 23:59 Intake Total 1999 2433.33 / 2433.33 Output Total 400 / 400 Balance 1999 2033.33 / 2033.33 General: Alert, Oriented x3, Cooperative HEENT: Atraumatic, PERRLA, EOMI, Normocephalic Oral: Dry Mucosa Neck: Supple, No JVD, Negative Carotid Bruits Lungs: Clear to auscultation, Normal air movement Cardiovascular: Regular rate, No murmurs Abdomen: Bowel Sounds Present, Soft, Non Tender, Non-Distended Extremities: No clubbing, No cyanosis, No edema, Capillary Refill Less than 3 Seconds Skin: No rashes, No breakdown Musculoskeletal: No Tenderness to Palpation of Joints or Extremities Neurological: Cranial nerves II-XII grossly intact, Neuro grossly intact Psych/Mental Status: Normal Affect, Appropriate Laboratory Results 02/27/20 20:12: WBC 6.8, RBC 4.69, Hgb 10.6 L, Hct 36.2 L, MCV 77.2 L, MCH 22.6 L, MCHC 29.3 L, RDW Std Deviation 42.5, RDW Coeff of Munir 15.8 H, Plt Count 260, MPV 9.3, Immature Gran % (Auto) 0.300, Neut % (Auto) 71.7 H, Lymph % (Auto) 13.4 L, Sabine % (Auto) 13.4 H, Eos % (Auto) 0.6, Baso % (Auto) 0.6, Absolute Neuts (auto) 4.9, Absolute Lymphs (auto) 0.91, Nucleated RBC % 0 02/27/20 20:12: Sodium 137, Potassium 3.4 L, Chloride 104, Carbon Dioxide 26.0, Anion Gap 7, BUN 9, Creatinine 0.67, Estim Creat Clear Calc 95.08, Est GFR (MDRD ) Af Amer 121, Est GFR (MDRD) Non-Af 100, BUN/Creatinine Ratio 13.5, Glucose 234 H, Calcium 8.7, Total Bilirubin 3.10 H, AST 380 H, ALT 581 H, Alkaline Phosphatase 190 H, Total Protein 7.9, Albumin 3.6, Globulin 4.3 H, Albumin/Globulin Ratio 0.8 L, Lipase 7043 H 02/27/20 20:12: Magnesium 1.9 02/27/20 20:28: POC Glucose 252 H 02/28/20 00:07: POC Glucose 200 H 02/28/20 04:02: Urine Test Negative 02/28/20 04:10: WBC 6.0, RBC 4.24, Hgb 9.5 L, Hct 33.3 L, MCV 78.5 L, MCH 22.4 L , MCHC 28.5 L, RDW Std Deviation 44.6 H, RDW Coeff of Munir 15.9 H, Plt Count 237, MPV 9.7, Immature Gran % (Auto) 0.300, Neut % (Auto) 64.6, Lymph % (Auto) 20.8, Sabine % (Auto) 13.1 H, Eos % (Auto) 0.5, Baso % (Auto) 0.7, Absolute Neuts (auto) 3.8, Absolute Lymphs (auto) 1.24, Nucleated RBC % 0 02/28/20 04:10: Sodium 139, Potassium 3.3 L, Chloride 110 H, Carbon Dioxide 22.0, Anion Gap 7, BUN 5 L, Creatinine 0.50 L, Estim Creat Clear Calc 132.35, Est GFR (MDRD) Af Amer 170, Est GFR (MDRD) Non-Af 141, BUN/Creatinine Ratio 10.1, Glucose 195 H, Calcium 7.5 L, Total Bilirubin 3.00 H, AST 283 H, ALT 437 H , Alkaline Phosphatase 158 H, Total Protein 6.3 L, Albumin 2.8 L, Globulin 3.5, Albumin/Globulin Ratio 0.8 L, Triglycerides 109, Cholesterol 131, LDL Cholesterol 64, VLDL Cholesterol 22, HDL Cholesterol 45 02/28/20 04:10: Hemoglobin A1c 11.8 H 02/28/20 04:10: PT 14.2, INR 1.2, APTT 27.2 02/28/20 05:37: POC Glucose 197 H 02/28/20 08:29: POC Glucose 179 H 02/28/20 11:45: POC Glucose 187 H Current Medications Acetaminophen (Tylenol) 650 mg PO Q6H PRN PRN PRN Reason: Pain Score 1-10/Temp > 100.7 F Albuterol Sulfate (Ventolin Aerosols) 2.5 mg INHALATION Q2H PRN PRN PRN Reason: Shortness of Breath/Wheezing Dextrose (D50w Syringe) 0 gm IV X1 PRN; Protocol PRN Reason: Hypoglycemia Glucagon () 1 mg IM .X1 PRN PRN Reason: Hypoglycemia Sodium Chloride () 1,000 mls @ 150 mls/hr IV .Q6H40M [facility] Last Admin: 02/28/20 09:19 Dose: 150 mls/hr Documented by: Cefotetan Disodium 2 gm/ (Sodium Chloride) 100 mls @ 200 mls/hr IV SEND TO OR W/PATIENT ONE Stop: 02/29/20 07:29 Lactated Ringer's () 1,000 mls @ 100 mls/hr IV .Q10H P[facility]NY Stop: 02/28/20 18:39 Last Infusion: 02/28/20 09:20 Dose: Infused Documented by: Insulin Human Lispro (Humalog Kwikpen (Bkc)) 0 unit SC Q6 PENNY; Protocol Last Admin: 02/28/20 11:49 Dose: 2 units Documented by: Morphine Sulfate () 2 mg IV Q3H PRN PRN PRN Reason: Pain Score 6-10/10 Ondansetron HCl (Zofran) 4 mg IV Q8H PRN PRN PRN Reason: NAUSEA/VOMITING Oxycodone HCl (Oxyir) 5 mg PO Q4H PRN PRN PRN Reason: Pain Score 4-5/10 Prochlorperazine Edisylate (Compazine Iv) 5 mg IV Q4H PRN PRN PRN Reason: Breakthrough nausea/vomiting Sodium Chloride () 10 - 40 ml IV UD PRN PRN Reason: SALINE FLUSH Last Admin: 02/28/20 05:52 Dose: 10 ml Documented by: Medical Necessity - Tobacco Use Smoking Status: Never smoker Tobacco Use: Non-smoker Assessment/Plan All Active Problems (Last Reviewed 12/23/17 @ 13:31 by Rolanda Vieyra) Acute gallstone pancreatitis (Acute) 1. Acute gallstone pancreatitis-General surgery following. Underwent ERCP 02/28/2020 with small stone removed. Plan for laparoscopic cholecystectomy tomorrow. N.p.o. after midnight. PRN pain regimen. PRN antiemetics. 2. Type 2 diabetes mellitus-metformin on hold. Hemoglobin A1c 11.8%. Accu- Cheks with sliding scale insulin. 3. Mild hypokalemia-replace per protocol. Trend BMP. DVT prophylaxis-SCDs This patient was seen by KARRIE Burns under the supervision of Dr. Bangura. <Mary Bangura - Last Filed: 02/28/20 14:25> - Physical Exam Vitals/I&O's: Vital Signs Temp Pulse Resp BP Pulse Ox 98.1 F 79 16 107/56 L 97 02/28/20 11:10 02/28/20 11:10 02/28/20 11:10 02/28/20 11:10 02/28/20 11:10 Oxygen Flow Rate (L/min) 2 Oxygen Delivery Method Room Air Weight: 215 lb 8 oz Body Mass Index (BMI) 33.7 Finger Stick Blood Glucose 179 Intake and Output for Last 24 Hours 02/26/20 02/27/20 02/28/20 23:59 23:59 23:59 Intake Total 1999 2633.33 / 2633.33 Output Total 750 / 750 Balance 1999 1883.33 / 1883.33 Laboratory Results 02/27/20 20:12: WBC 6.8, RBC 4.69, Hgb 10.6 L, Hct 36.2 L, MCV 77.2 L, MCH 22.6 L, MCHC 29.3 L, RDW Std Deviation 42.5, RDW Coeff of Munir 15.8 H, Plt Count 260, MPV 9.3, Immature Gran % (Auto) 0.300, Neut % (Auto) 71.7 H, Lymph % (Auto) 13.4 L, Sabine % (Auto) 13.4 H, Eos % (Auto) 0.6, Baso % (Auto) 0.6, Absolute Neuts (auto) 4.9, Absolute Lymphs (auto) 0.91, Nucleated RBC % 0 02/27/20 20:12: Sodium 137, Potassium 3.4 L, Chloride 104, Carbon Dioxide 26.0, Anion Gap 7, BUN 9, Creatinine 0.67, Estim Creat Clear Calc 95.08, Est GFR (MDRD) Af Amer 121, Est GFR (MDRD) Non-Af 100, BUN/Creatinine Ratio 13.5, Glucose 234 H, Calcium 8.7, Total Bilirubin 3.10 H, AST 380 H, ALT 581 H, Alkaline Phosphatase 190 H, Total Protein 7.9, Albumin 3.6, Globulin 4.3 H, Albumin/Globulin Ratio 0.8 L, Lipase 7043 H 02/27/20 20:12: Magnesium 1.9 02/27/20 20:28: POC Glucose 252 H 02/28/20 00:07: POC Glucose 200 H 02/28/20 04:02: Urine Test Negative 02/28/20 04:10: WBC 6.0, RBC 4.24, Hgb 9.5 L, Hct 33.3 L, MCV 78.5 L, MCH 22.4 L , MCHC 28.5 L, RDW Std Deviation 44.6 H, RDW Coeff of Munir 15.9 H, Plt Count 237, MPV 9.7, Immature Gran % (Auto) 0.300, Neut % (Auto) 64.6, Lymph % (Auto) 20.8, Sabine % (Auto) 13.1 H, Eos % (Auto) 0.5, Baso % (Auto) 0.7, Absolute Neuts (auto) 3.8, Absolute Lymphs (auto) 1.24, Nucleated RBC % 0 02/28/20 04:10: Sodium 139, Potassium 3.3 L, Chloride 110 H, Carbon Dioxide 22.0, Anion Gap 7, BUN 5 L, Creatinine 0.50 L, Estim Creat Clear Calc 132.35, Est GFR (MDRD) Af Amer 170, Est GFR (MDRD) Non-Af 141, BUN/Creatinine Ratio 10.1, Glucose 195 H, Calcium 7.5 L, Total Bilirubin 3.00 H, AST 283 H, ALT 437 H , Alkaline Phosphatase 158 H, Total Protein 6.3 L, Albumin 2.8 L, Globulin 3.5, Albumin/Globulin Ratio 0.8 L, Triglycerides 109, Cholesterol 131, LDL Cholesterol 64, VLDL Cholesterol 22, HDL Cholesterol 45 02/28/20 04:10: Hemoglobin A1c 11.8 H 02/28/20 04:10: PT 14.2, INR 1.2, APTT 27.2 02/28/20 05:37: POC Glucose 197 H 02/28/20 08:29: POC Glucose 179 H 02/28/20 11:45: POC Glucose 187 H Current Medications Acetaminophen (Tylenol) 650 mg PO Q6H PRN PRN PRN Reason: Pain Score 1-10/Temp > 100.7 F Albuterol Sulfate (Ventolin Aerosols) 2.5 mg INHALATION Q2H PRN PRN PRN Reason: Shortness of Breath/Wheezing Dextrose (D50w Syringe) 0 gm IV X1 PRN; Protocol PRN Reason: Hypoglycemia Glucagon () 1 mg IM .X1 PRN PRN Reason: Hypoglycemia Sodium Chloride () 1,000 mls @ 150 mls/hr IV .Q6H40M [facility] Last Admin: 02/28/20 09:19 Dose: 150 mls/hr Documented by: Cefotetan Disodium 2 gm/ (Sodium Chloride) 100 mls @ 200 mls/hr IV SEND TO OR W/PATIENT ONE Stop: 02/29/20 07:29 Lactated Ringer's () 1,000 mls @ 100 mls/hr IV .Q10H [facility] Stop: 02/28/20 18:39 Last Infusion: 02/28/20 09:20 Dose: Infused Documented by: Insulin Human Lispro (Humalog Kwikpen (Bkc)) 0 unit SC Q6 PENNY; Protocol Last Admin: 02/28/20 11:49 Dose: 2 units Documented by: Morphine Sulfate () 2 mg IV Q3H PRN PRN PRN Reason: Pain Score 6-10/10 Ondansetron HCl (Zofran) 4 mg IV Q8H PRN PRN PRN Reason: NAUSEA/VOMITING Oxycodone HCl (Oxyir) 5 mg PO Q4H PRN PRN PRN Reason: Pain Score 4-5/10 Prochlorperazine Edisylate (Compazine Iv) 5 mg IV Q4H PRN PRN PRN Reason: Breakthrough nausea/vomiting Sodium Chloride () 10 - 40 ml IV UD PRN PRN Reason: SALINE FLUSH Last Admin: 02/28/20 05:52 Dose: 10 ml Documented by: Assessment/Plan Patient seen by KARRIE Burns under my supervision Patient was admitted with a complaint of epigastric pain and found to have acute pancreatitis thought to be due to gallstones. She had ERCP today with removal of a small stone. Patient seen after ERCP. She denied any fever, chills, nausea vomiting and abdominal pain had improved. She does complain of generalized weakness and lethargy. Review of systems otherwise negative. Bilirubin is trended down slightly to 3 and AST and ALT have also trended down as well as ALP. Potassium is 3.3. O/E: General: Alert, Oriented x3, Cooperative HEENT: Atraumatic, PERRLA, EOMI, Normocephalic Oral: Dry Mucosa Neck: Supple, No JVD, Negative Carotid Bruits Lungs: Clear to auscultation, Normal air movement Cardiovascular: Regular rate, No murmurs Abdomen: Bowel Sounds Present, Soft, Non Tender, Non-Distended, no organomegaly Extremities: No clubbing, No cyanosis, No edema, Capillary Refill Less than 3 Seconds Skin: No rashes, No breakdown Musculoskeletal: No Tenderness to Palpation of Joints or Extremities Neurological: Cranial nerves II-XII grossly intact, Neuro grossly intact Psych/Mental Status: Normal Affect, Appropriate Plan is for laparoscopic cholecystectomy tomorrow. Continue hydrating with IV fluids. Replace potassium with IV potassium chloride. Metformin currently on hold. A1c markedly elevated at 11.8. Insulin sliding scale. Checks AC at bedtime. General surgery on board. Rest as per KARRIE Burns's notes which I have reviewed and endorsed. Inpatient E&M: 43703 [facility] L3
[2020-02-28 17:10] LABS: Bedside Glucose 250 mg/dL (70-110)
[2020-02-29] VITALS (19 sets, daily range): BP systolic 78–122; BP diastolic 36–76; PULSE 45–82; RESP 14–16; TEMP 36.3–36.7; O2SAT 91–100; BMI 33.7
[2020-02-29 00:45] LABS: Bedside Glucose 143 mg/dL (70-110)
[2020-02-29] MEDS: 0.9% Normal Saline 1,000 ML 150 ML IV ×2 (04:13→10:54)
[2020-02-29 06:26] LABS: Bedside Glucose 148 mg/dL (70-110)
[2020-02-29 06:30] LABS: Absolute Lymphocyte Count 1.76 X10^3/uL (0.83-4.51); Basophil# 0.03 X10^3/uL; Basophil% 0.5 % (0-1); Eosinophil# 0.07 X10^3/uL; Eosinophils% 1.3 % (0-5); Hematocrit 30.1 % (37-47); Hemoglobin 8.6 g/dL (12.0-15.0); Lymphocyte # 1.76 X10^3/ul (4.0); Lymphocyte % 32.2 % (19-41); Mean Corp Hgb Conc 28.6 g/dL (32-36); Mean Corpuscular Hgb 22.5 pg (27.0-32.0); Mean Corpuscular Volume 78.6 fL (81-99); Mean Platelet Vol. 9.1 fl (6.2-12.0); Monocyte# 0.56 X10^3/uL; Monocyte% 10.3 % (0-10); NRBC Flagged by Analyzer 0 % (0-5); Neutrophil # 3.02 X10^3/uL (2.7-7.7); Neutrophil % 55.3 % (47-70); Platelet Count 218 K/mm3 (150-450); RBC Distribution Width CV 15.9 % (11.6-14.6); RBC Distribution Width SD 44.8 fl (35.1-43.9); Red Blood Count 3.83 M/mm3 (4.2-5.4); White Blood Count 5.5 K/mm3 (4.4-11.0)
[2020-02-29 06:59] LABS: ALB/GLOB Ratio 0.8 RATIO (0.9-2.4); AST(SGOT) 108 U/L (15-37); Alanine Aminotransfer ALT/SGPT 292 U/L (13-56); Albumin, Serum 2.4 g/dL (3.2-5.0); Alkaline Phosphatase 135 U/L (45-117); Anion Gap 6 (5-15); BUN 8 mg/dL (7-18); BUN/Creat Ratio 14.4 RATIO (10-20); Calcium,Total 7.4 mg/dL (8.5-10.1); Chloride 112 mmol/L (98-107); Creatinine, Serum 0.56 mg/dL (0.55-1.02); EST Glomerular Filtration Rate 123 mL/min (>60); Est Glom Filt Rate - Afr Amer 149 mL/min (>60); Estimated Creatinine Clearance 118.17 ml/min; Globulin 3.2 g/dL (2.2-4.2); Glucose 140 mg/dL (74-106); Lipase 466 U/L (73-393); Potassium 3.1 mmol/L (3.5-5.1); Protein, Total 5.6 g/dL (6.4-8.2); Sodium Level 142 mmol/L (136-145)
--- NOTE | 2020-02-29 08:09 | PCM.PN.SRG ---
Patient Problems: Active and Suspected Problems (Last Reviewed 12/23/17 @ 13:31 by Rolanda Vieyra) Acute gallstone pancreatitis (Acute) Subjective: Patient does not complain of any abdominal pain. No nausea or vomiting overnight. - Physical Exam Vitals/I&O's: Vital Signs Temp Pulse Resp BP Pulse Ox 97.8 F 82 16 92/52 L 96 02/29/20 04:15 02/29/20 04:15 02/29/20 04:15 02/29/20 04:15 02/29/20 04:15 Oxygen Flow Rate (L/min) 2 Oxygen Delivery Method Room Air Weight: 215 lb 7.994 oz Body Mass Index (BMI) 33.7 Finger Stick Blood Glucose 179 Intake and Output for Last 24 Hours 02/27/20 02/28/20 02/29/20 23:59 23:59 23:59 Intake Total 1999 4988.33 / 4988.33 1100 / 1100 Output Total 1100 / 1100 400 / 400 Balance 1999 3888.33 / 3888.33 700 / 700 General: Alert, Oriented x3 Lungs: Normal air movement Abdomen: Soft, Non Tender, Non-Distended Laboratory Results 02/28/20 08:29: POC Glucose 179 H 02/28/20 11:45: POC Glucose 187 H 02/28/20 17:02: POC Glucose 250 H 02/29/20 00:30: POC Glucose 143 H 02/29/20 06:00: WBC 5.5, RBC 3.83 L, Hgb 8.6 L, Hct 30.1 L, MCV 78.6 L, MCH 22.5 L, MCHC 28.6 L, RDW Std Deviation 44.8 H, RDW Coeff of Munir 15.9 H, Plt Count 218, MPV 9.1, Immature Gran % (Auto) 0.400, Neut % (Auto) 55.3, Lymph % (Auto) 32.2, Moore % (Auto) 10.3 H, Eos % (Auto) 1.3, Baso % (Auto) 0.5, Absolute Neuts (auto) 3.0, Absolute Lymphs (auto) 1.76, Nucleated RBC % 0 02/29/20 06:00: Sodium 142, Potassium 3.1 L, Chloride 112 H, Carbon Dioxide 24.0, Anion Gap 6, BUN 8, Creatinine 0.56, Estim Creat Clear Calc 118.17, Est GFR (MDRD) Af Amer 149, Est GFR (MDRD) Non-Af 123, BUN/Creatinine Ratio 14.4, Glucose 140 H, Calcium 7.4 L, Total Bilirubin 0.80, AST 108 H, ALT 292 H, Alkaline Phosphatase 135 H, Total Protein 5.6 L, Albumin 2.4 L, Globulin 3.2, Albumin/Globulin Ratio 0.8 L, Lipase 466 H 02/29/20 06:18: POC Glucose 148 H Current Medications Acetaminophen (Tylenol) 650 mg PO Q6H PRN PRN PRN Reason: Pain Score 1-10/Temp > 100.7 F Albuterol Sulfate (Ventolin Aerosols) 2.5 mg INHALATION Q2H PRN PRN PRN Reason: Shortness of Breath/Wheezing Dextrose (D50w Syringe) 0 gm IV X1 PRN; Protocol PRN Reason: Hypoglycemia Glucagon () 1 mg IM .X1 PRN PRN Reason: Hypoglycemia Sodium Chloride () 1,000 mls @ 150 mls/hr IV .Q6H40M [facility] Last Admin: 02/29/20 04:13 Dose: 150 mls/hr Documented by: Insulin Human Lispro (Humalog Kwikpen (Bkc)) 0 unit SC Q6 PENNY; Protocol Last Admin: 02/29/20 06:30 Dose: Not Given Documented by: Morphine Sulfate () 2 mg IV Q3H PRN PRN PRN Reason: Pain Score 6-10/10 Ondansetron HCl (Zofran) 4 mg IV Q8H PRN PRN PRN Reason: NAUSEA/VOMITING Oxycodone HCl (Oxyir) 5 mg PO Q4H PRN PRN PRN Reason: Pain Score 4-5/10 Prochlorperazine Edisylate (Compazine Iv) 5 mg IV Q4H PRN PRN PRN Reason: Breakthrough nausea/vomiting Sodium Chloride () 10 - 40 ml IV UD PRN PRN Reason: SALINE FLUSH Last Admin: 02/28/20 05:52 Dose: 10 ml Documented by: Medical Necessity - Tobacco Use Smoking Status: Never smoker Tobacco Use: Non-smoker Assessment/Plan All Active Problems (Last Reviewed 12/23/17 @ 13:31 by Rolanda Vieyra) Acute gallstone pancreatitis (Acute) 49-year-old female with gallstone pancreatitis status post ERCP 1. Patient had ERCP yesterday and LFTs are improving. Plan for laparoscopic cholecystectomy today. Lipase is improving as well. 2. I discussed the procedure in detail with the patient. I discussed the risks, benefits, and alternatives of the procedure. I discussed the risks including but not limited to bleeding, infection, injury to surrounding organs such as the liver, bile duct, bowels. I did discuss the possibility of having to convert to an open procedure as well as the possibility that if any injuries occurred this may necessitate further surgery at a tertiary care center. We discussed the current risks associated with COVID-19. While it is understood that there is a community spread of COVID-19, the risk of allyssa COVID-19 while at [facility] ([facility]) is very low; however, the risk cannot be completely mitigated because of the community spread of the disease. We discussed in detail the risk of exposure to and/or potential harm posed by the COVID-19 virus with having a surgery/procedure at this time versus the risk of delaying the surgery/procedure. It is not possible to know either the risk of delaying the surgery or procedure or chance of getting an infection with perfect accuracy, but a joint decision was made to proceed at this time with the scheduled surgery/procedure as indicated on the consent form. Patient was notified that we will need to comply with any screening or testing [facility] wishes to perform or that surgery may be delayed for any positive results. Jimmy Botello MD Pager: [facility] [address] [place] [address], [address] Office:
--- NOTE | 2020-02-29 10:20 | CASEMGMT ---
RN CM Face to Face with patient for initial transition planning/care coordination assessment. RN CM introduced self and role at [facility]. Patient lying in bed, alert and oriented. Patient willing to participate in assessment and is able to answer all questions appropriately. Care providers, pharmacy, and demographics verified. Patient wishes to discharge home, denies need for home health at this time. Patient states she has no further needs or concerns at this time. CM to follow for discharge planning needs that may arise. PCP: Rosa Specialists:JESSE Clement- Endocrinology Preferred Pharmacy: [facility] Insurance: R Prescription Benefit: yes Living Will/HPOA: yes, sister Charline Osuna LNOK: Living Arrangements: Patient states she lives with in a split level home. Patient is independent and able to ambulate stairs. Transportation: self/ DME/HHC: Patient has glucometer and testing supplies. Patient denies need for additional DME. No previous HHC. Disposition Plan: Patient to discharge home with family support and follow-up plans in place. Olga MARIN, RN, CM
--- NOTE | 2020-02-29 11:24 | PCM.PROGNOTE ---
<Francy Kwong - Last Filed: 02/29/20 11:29> Subjective: Patient seen and examined. Denies pain, nausea, vomiting overnight. States she is ready to get surgery over with. Hoping to go home later today. - Physical Exam Vitals/I&O's: Vital Signs Temp Pulse Resp BP Pulse Ox 98.0 F 79 14 122/72 H 100 02/29/20 10:00 02/29/20 10:00 02/29/20 10:00 02/29/20 10:00 02/29/20 10:00 Oxygen Flow Rate (L/min) 2 Oxygen Delivery Method Room Air Weight: 215 lb 7 oz Body Mass Index (BMI) 33.7 Finger Stick Blood Glucose 179 Intake and Output for Last 24 Hours 02/27/20 02/28/20 02/29/20 23:59 23:59 23:59 Intake Total 1999 4988.33 / 4988.33 2100 / 2100 Output Total 1100 / 1100 400 / 400 Balance 1999 3888.33 / 3888.33 1700 / 1700 General: Alert, Oriented x3, Cooperative HEENT: Atraumatic, PERRLA, EOMI, Normocephalic Neck: Supple, No JVD, Negative Carotid Bruits Lungs: Clear to auscultation, Normal air movement Cardiovascular: Regular rate, No murmurs Abdomen: Bowel Sounds Present, Soft, Non Tender Extremities: No clubbing, No cyanosis, No edema, Capillary Refill Less than 3 Seconds Skin: No rashes, No breakdown Musculoskeletal: No Tenderness to Palpation of Joints or Extremities Neurological: Cranial nerves II-XII grossly intact, Neuro grossly intact Psych/Mental Status: Normal Affect, Appropriate Laboratory Results 02/28/20 11:45: POC Glucose 187 H 02/28/20 17:02: POC Glucose 250 H 02/29/20 00:30: POC Glucose 143 H 02/29/20 06:00: WBC 5.5, RBC 3.83 L, Hgb 8.6 L, Hct 30.1 L, MCV 78.6 L, MCH 22.5 L, MCHC 28.6 L, RDW Std Deviation 44.8 H, RDW Coeff of Munir 15.9 H, Plt Count 218, MPV 9.1, Immature Gran % (Auto) 0.400, Neut % (Auto) 55.3, Lymph % (Auto) 32.2, Victoria % (Auto) 10.3 H, Eos % (Auto) 1.3, Baso % (Auto) 0.5, Absolute Neuts (auto) 3.0, Absolute Lymphs (auto) 1.76, Nucleated RBC % 0 02/29/20 06:00: Sodium 142, Potassium 3.1 L, Chloride 112 H, Carbon Dioxide 24.0, Anion Gap 6, BUN 8, Creatinine 0.56, Estim Creat Clear Calc 118.17, Est GFR (MDRD) Af Amer 149, Est GFR (MDRD) Non-Af 123, BUN/Creatinine Ratio 14.4, Glucose 140 H, Calcium 7.4 L, Total Bilirubin 0.80, AST 108 H, ALT 292 H, Alkaline Phosphatase 135 H, Total Protein 5.6 L, Albumin 2.4 L, Globulin 3.2, Albumin/Globulin Ratio 0.8 L, Lipase 466 H 02/29/20 06:18: POC Glucose 148 H Current Medications Acetaminophen (Tylenol) 650 mg PO Q6H PRN PRN PRN Reason: Pain Score 1-10/Temp > 100.7 F Albuterol Sulfate (Ventolin Aerosols) 2.5 mg INHALATION Q2H PRN PRN PRN Reason: Shortness of Breath/Wheezing Dextrose (D50w Syringe) 0 gm IV X1 PRN; Protocol PRN Reason: Hypoglycemia Glucagon () 1 mg IM .X1 PRN PRN Reason: Hypoglycemia Sodium Chloride () 1,000 mls @ 150 mls/hr IV .Q6H40M [facility] Last Admin: 02/29/20 10:54 Dose: 150 mls/hr Documented by: Insulin Human Lispro (Humalog Kwikpen (Bkc)) 0 unit SC Q6 PENNY; Protocol Last Admin: 02/29/20 06:30 Dose: Not Given Documented by: Morphine Sulfate () 2 mg IV Q3H PRN PRN PRN Reason: Pain Score 6-10/10 Ondansetron HCl (Zofran) 4 mg IV Q8H PRN PRN PRN Reason: NAUSEA/VOMITING Oxycodone HCl (Oxyir) 5 mg PO Q4H PRN PRN PRN Reason: Pain Score 4-5/10 Prochlorperazine Edisylate (Compazine Iv) 5 mg IV Q4H PRN PRN PRN Reason: Breakthrough nausea/vomiting Sodium Chloride () 10 - 40 ml IV UD PRN PRN Reason: SALINE FLUSH Last Admin: 02/28/20 05:52 Dose: 10 ml Documented by: Medical Necessity - Tobacco Use Smoking Status: Never smoker Tobacco Use: Non-smoker Assessment/Plan All Active Problems (Last Reviewed 12/23/17 @ 13:31 by Rolanda Vieyra) Acute gallstone pancreatitis (Acute) 1. Acute gallstone pancreatitis-General surgery following. Underwent ERCP 02/28/2020 with small stone removed. Plan for laparoscopic cholecystectomy today. Patient denies further pain, nausea, vomiting. 2. Type 2 diabetes mellitus-metformin on hold. Hemoglobin A1c 11.8%. Accu-Cheks with sliding scale insulin. 3. Mild hypokalemia-replace per protocol. Trend BMP. DVT prophylaxis-SCDs This patient was seen by KARRIE Burns under the supervision of Dr. Arriola. <Shayan Arriola F - Last Filed: 02/29/20 15:46> - Physical Exam Vitals/I&O's: Vital Signs Temp Pulse Resp BP Pulse Ox 97.5 F L 54 L 16 96/56 L 97 02/29/20 15:30 02/29/20 15:30 02/29/20 15:30 02/29/20 15:30 02/29/20 15:30 Oxygen Flow Rate (L/min) 3 Oxygen Delivery Method Nasal Cannula Weight: 215 lb 7 oz Body Mass Index (BMI) 33.7 Finger Stick Blood Glucose 185 Intake and Output for Last 24 Hours 02/27/20 02/28/20 02/29/20 23:59 23:59 23:59 Intake Total 1999 4988.33 / 4988.33 3100 / 3100 Output Total 1100 / 1100 400 / 400 Balance 1999 3888.33 / 3888.33 2700 / 2700 Laboratory Results 02/28/20 17:02: POC Glucose 250 H 02/29/20 00:30: POC Glucose 143 H 02/29/20 06:00: WBC 5.5, RBC 3.83 L, Hgb 8.6 L, Hct 30.1 L, MCV 78.6 L, MCH 22.5 L, MCHC 28.6 L, RDW Std Deviation 44.8 H, RDW Coeff of Munir 15.9 H, Plt Count 218, MPV 9.1, Immature Gran % (Auto) 0.400, Neut % (Auto) 55.3, Lymph % (Auto) 32.2, Victoria % (Auto) 10.3 H, Eos % (Auto) 1.3, Baso % (Auto) 0.5, Absolute Neuts (auto) 3.0, Absolute Lymphs (auto) 1.76, Nucleated RBC % 0 02/29/20 06:00: Sodium 142, Potassium 3.1 L, Chloride 112 H, Carbon Dioxide 24.0, Anion Gap 6, BUN 8, Creatinine 0.56, Estim Creat Clear Calc 118.17, Est GFR (MDRD) Af Amer 149, Est GFR (MDRD) Non-Af 123, BUN/Creatinine Ratio 14.4, Glucose 140 H, Calcium 7.4 L, Total Bilirubin 0.80, AST 108 H, ALT 292 H, Alkaline Phosphatase 135 H, Total Protein 5.6 L, Albumin 2.4 L, Globulin 3.2, Albumin/Globulin Ratio 0.8 L, Lipase 466 H 02/29/20 06:18: POC Glucose 148 H 02/29/20 13:53: POC Glucose 185 H Current Medications Acetaminophen (Tylenol) 650 mg PO Q6H PRN PRN PRN Reason: Pain Score 1-10/Temp > 100.7 F Albuterol Sulfate (Ventolin Aerosols) 2.5 mg INHALATION Q2H PRN PRN PRN Reason: Shortness of Breath/Wheezing Dextrose (D50w Syringe) 0 gm IV X1 PRN; Protocol PRN Reason: Hypoglycemia Glucagon () 1 mg IM .X1 PRN PRN Reason: Hypoglycemia Sodium Chloride () 1,000 mls @ 150 mls/hr IV .Q6H40M [facility] Last Admin: 02/29/20 10:54 Dose: 150 mls/hr Documented by: Lactated Ringer's () 1,000 mls @ 100 mls/hr IV .Q10H [facility] Last Admin: 02/29/20 13:30 Dose: 100 mls/hr Documented by: Insulin Human Lispro (Humalog Kwikpen (Bkc)) 0 unit SC Q6 PENNY; Protocol Last Admin: 02/29/20 06:30 Dose: Not Given Documented by: Morphine Sulfate () 2 mg IV Q3H PRN PRN PRN Reason: Pain Score 6-10/10 Ondansetron HCl (Zofran) 4 mg IV Q8H PRN PRN PRN Reason: NAUSEA/VOMITING Oxycodone HCl (Oxyir) 5 mg PO Q4H PRN PRN PRN Reason: Pain Score 4-5/10 Prochlorperazine Edisylate (Compazine Iv) 5 mg IV Q4H PRN PRN PRN Reason: Breakthrough nausea/vomiting Sodium Chloride () 10 - 40 ml IV UD PRN PRN Reason: SALINE FLUSH Last Admin: 02/28/20 05:52 Dose: 10 ml Documented by: Addendum: Dr. Arriola I personally examined the patient and reviewed the chart. I agree with the above. 49-year-old female presents to the hospital with abdominal pain found to have gallstone pancreatitis. She underwent an ERCP to remove the stone and underwent a cholecystectomy today 02/29/2020. Prior to the cholecystectomy she felt great and was hoping to go home today. Discussed with her that that depends on how surgery goes and she is able to tolerate a diet. Discussed with her that she needs better blood sugar control, she is improved today to less than 200. Also her potassium was 3.1 which was replaced. Inpatient E&M: 29601 Subs Hosp L2
--- NOTE | 2020-02-29 11:25 | NURSING ---
1100-pt off unit via bed for scheduled surgery
[2020-02-29] MEDS: Lactated Ringers 1,000 ML 100 ML IV ×2 (12:15→13:30)
--- NOTE | 2020-02-29 12:49 | RAD_ITS ---
STUDY: INTRAOPERATIVE CHOLANGIOGRAM. REASON FOR EXAM: Female, 49 years old. Pain, gall stone, pancreatitis -- one cine run FLUOROSCOPY TIME (if supplied): ( 14.2 seconds ) minutes/seconds. A single run consisting of 94 images were submitted. TECHNIQUE: An intraoperative cholangiogram was performed by the surgeon. Imaging was submitted. COMPARISON: None. FINDINGS: The intrahepatic and extrahepatic biliary ducts are unremarkable. No intraluminal filling defect is seen. There is free flow of contrast into the duodenum. RAD/Cholangiogram/ O R,Initial IMPRESSION: Unremarkable intraoperative cholangiogram. Electronically Signed: Landen Montaño, at 14:40 EDT , Service support ,
[2020-02-29] MEDS: Bupiv/Epi 0.25% 30 ML Vial (13:20)
--- NOTE | 2020-02-29 13:41 | PCM.OPRPT ---
Problem List (1) Acute gallstone pancreatitis Status: Acute Report of Operation Date of Procedure: 02/29/20 Pre-Operative Diagnosis: Gallstone pancreatitis Post-Operative Diagnosis: Same Surgery/Procedure Performed:: Laparoscopic cholecystectomy with cholangiogram Specimen's removed: Gallbladder and contents Description of Procedure: After obtaining informed consent patient was brought back to the operating room. General anesthesia was induced. The abdomen was prepped and draped in usual sterile fashion. A small midline incision was made superior to the umbilicus and deepened to the level of fascia. The fascia was elevated and incised. Next the peritoneum was elevated and incised in the same fashion. Finger sweep was performed and the Mcghee trocar was placed into the abdomen. The balloon was inflated. The abdomen was inflated to 15 mmHg. Next a camera was introduced into the abdomen and the abdomen was inspected. Next under direct visualization three 5-mm ports were placed one subxiphoid and 2 subcostal. Next the gallbladder was elevated and retracted toward the right shoulder. The peritoneum was stripped from the gallbladder. The infundibulum was located and retracted laterally. Next the triangle of Calot was dissected and the cystic duct and cystic artery were identified. Cholangiograms were performed. The Lopez clamp was used to clamp across the infundibulum and the catheter needle was inserted into the gallbladder. Under fluoroscopy contrast was instilled into the gallbladder and the common duct, cystic duct as well as proximal hepatic ducts were identified. There was good filling of the duodenum. There were no filling defects noted in the common bile duct. The clamp was removed as well as the needle and the infundibulum was grasped once more. Three hemolock clips were placed across the cystic duct. The cystic duct was then divided leaving 2 clips on the stump. The cystic artery was clipped and divided in the same fashion. The hook cautery was then used to take the gallbladder off of the gallbladder bed. Hemostasis was obtained. Gallbladder fossa was irrigated and no active bleeding or bile leakage was noted. Next the camera was introduced in the subxiphoid port. An Endopouch bag was placed through the umbilical port and the gallbladder was placed into it. The gallbladder was then removed through the umbilical incision. The camera was then reinserted through the umbilical port. The gallbladder fossa was inspected once more and noted to be hemostatic with no leaking bile. The abdomen was suctioned dry. The 5 mm ports were removed under direct visualization. The umbilical port was then removed and the air was removed from the abdomen. Next using an 0 Vicryl suture the umbilical fascia was closed in a melaqw-gn-lfost fashion. The umbilical port site was irrigated local anesthetic was administered to all the incisions. All the incisions were closed with interrupted subcuticular 4-0 Monocryl sutures followed by Steri-Strips and dressings. The patient was awoken and taken to PACU in stable condition. - Admit VTE Documentation VTE Mechan Device Prophylaxis: SCD's
--- NOTE | 2020-02-29 13:44 | DCINST_ITS ---
Discharge Diet: Light diet - advance as tolerated Discharge Activity: Return to Normal Activity, May Not Drive - for 2-3 days or while taking narcotic pain medicataions., - - Do not drive, work heavy equipment or sign legal documents for 24 hours. May shower in (days): 1 - with the bandage in place. Lifting Restrictions: 20 lbs for 2 weeks Additional Activity Instructions:: Pain medication may cause nausea. You should typically eat light foods as you take your pain medications. Pain medication may also cause constipation. If this is a problem for you, please discuss with your doctor. Call your doctor if your incision/area has: Continuous Slow Oozing, Sudden Increased Bleeding, Increased Pain/ Swelling, Increased Redness, Foul Smelling Discharge, Fever of 101 or Higher Call your doctor if you observe: Fever of 101 or Higher Suture Line Care: Avoid Pulling/Pushing, Avoid Pinching/Bending Additional Dressing/Incision Instructions:: Leave operative bandaids on for 2 days. When you remove dressing, leave Steri-Strips on until your follow-up appointment, or until the Steri-Strips fall off on their own. Allergies/Adverse Reactions: Allergies No Known Allergies Allergy (Unverified 02/27/20 19:48) Medications to take at Discharge metformin 500 mg tablet 500 mg PO BID 11/07/17 Test Results: Test results from this visit will be discussed in further detail at your follow- up appointment, if applicable. Please Follow Up With: Jimmy Botello MD When: Please call to schedule 2 week follow up appointment. [phone]
[2020-02-29 13:55] LABS: Bedside Glucose 185 mg/dL (70-110)
--- NOTE | 2020-02-29 14:34 | DCINST_ITS ---
- Discharge Diagnoses Current Active Problems: Current Active and Chronic Problems (Last Reviewed 12/23/17 @ 13:31 by Rolanda Vieyra) Acute gallstone pancreatitis (Acute) You will use the following diet at home:: Other - Light diet-advance as tolerated. Discharge Activity: Return to Normal Activity, May Not Drive - for 2-3 days or while taking narcotic pain medicataions., - - Do not drive, work heavy equipment or sign legal documents for 24 hours. May shower in (days): 1 - with the bandage in place. Additional Activity Instructions:: Pain medication may cause nausea. You should typically eat light foods as you take your pain medications. Pain medication may also cause constipation. If this is a problem for you, please discuss with your doctor. Call your doctor if your incision/area has: Continuous Slow Oozing, Sudden Increased Bleeding, Increased Pain/ Swelling, Increased Redness, Foul Smelling Discharge, Fever of 101 or Higher Call your doctor if you observe: Fever of 101 or Higher Suture Line Care: Avoid Pulling/Pushing, Avoid Pinching/Bending Additional Dressing/Incision Instructions:: Leave operative bandaids on for 2 da ys. When you remove dressing, leave Steri-Strips on until your follow-up appointment, or until the Steri-Strips fall off on their own. Allergies/Adverse Reactions: Allergies No Known Allergies Allergy (Unverified 02/27/20 19:48) Medications to take at Discharge metformin 500 mg tablet 500 mg PO BID 11/07/17 Acetaminophen [Tylenol Tablet] 650 mg PO Q6H PRN PRN tab 02/29/20 Oxycodone [Oxyir] 5 mg PO Q4H PRN PRN 5 Days #30 tab 02/29/20 The following prescriptions were given: Oxycodone [Oxyir] 5 mg PO Q4H PRN PRN 5 Days #30 tab PRN Reason: Pain Score 4-5/10 Transmission Status: Received by [facility] Primary Care Physician: Elva Lee MD [Primary Care Provider] - Please follow up with your Primary Care Physician in: 1 Week Test Results: Test results from this visit will be discussed in further detail at your follow- up appointment, if applicable. Please Follow Up With: Jimmy Botello MD When: Please call to schedule 2 week follow up appointment. [phone] Proposed Discharge Date: 02/29/20
--- NOTE | 2020-02-29 14:34 | PCM.DC.SUM ---
<Francy Kwong - Last Filed: 02/29/20 16:00> Discharge Date and Diagnosis Date of Admission: 02/27/20 Date of Discharge: 02/29/20 - Primary Discharge Diagnosis Acute Problems: Active Problems (Last Reviewed 12/23/17 @ 13:31 by Rolanda Vieyra) 1. Acute gallstone pancreatitis 2. Type 2 diabetes mellitus 3. Mild hypokalemia - Secondary Discharge Diagnosis Chronic Problems: Chronic Problems (Last Reviewed 12/23/17 @ 13:31 by Rolanda Vieyra) Type 2 diabetes mellitus without complication, without long-term current use of insulin (Chronic) Doing very well. Diet and exercise as discussed. Is pleased as well as she should be with her progress. no change is needed.Will update lab. contnue with current regimen. BP in range Hospital Course and Treatment Imaging Results: Diagnostic Data Gallbladder Ultrasound 02/27/20 21:19 IMPRESSION: Gallstones and sludge within the gallbladder with no associated gallbladder wall thickening, pericholecystic fluid or reported sonographic Diaz''s sign. Electronically Signed: Frances Davidson MD at 23:21 EDT Tel , Service support , Dr. Botello- general surgery Operations: [email or web address], ERCP Procedures: None Summary of Care Provided: The patient is a 49 year old F admitted 02/27/2020 due to abdominal pain. 1. Acute gallstone pancreatitis-General surgery following. Underwent ERCP 02/28/2020 with small stone removed. Laparoscopic cholecystectomy 02/29/2020. PRN pain regimen. Discharge recommendations per general surgery. Advance diet as tolerated. Follow-up with general surgery in 2 weeks. 2. Type 2 diabetes mellitus-continue metformin. Hemoglobin A1c 11.8%. Recommend follow-up with PCP regarding more aggressive reduction in A1c. 3. Mild hypokalemia-replaced per protocol. General: Alert, Oriented x3, Cooperative HEENT: Atraumatic, PERRLA, EOMI, Normocephalic Oral: Dry Mucosa Neck: Supple, No JVD, Negative Carotid Bruits Lungs: Clear to auscultation, Normal air movement Cardiovascular: Regular rate, No murmurs Abdomen: Bowel Sounds Present, Soft, Non Tender, Non-Distended Extremities: No clubbing, No cyanosis, No edema, Capillary Refill Less than 3 Seconds Skin: No rashes, No breakdown Musculoskeletal: No Tenderness to Palpation of Joints or Extremities Neurological: Cranial nerves II-XII grossly intact, Neuro grossly intact Psych/Mental Status: Normal Affect, Appropriate Patient seen and examined prior to discharge. Physical assessment as noted above. Patient is stable for discharge with follow up recommendations as noted above. This patient was seen by KARRIE Burns under the supervision of Dr. Arriola. - Physical Exam Vitals/I&O's: Vital Signs Temp Pulse Resp BP Pulse Ox 97.6 F L 49 L 16 89/46 L 95 02/29/20 13:38 02/29/20 14:29 02/29/20 14:29 02/29/20 14:29 02/29/20 14:29 Oxygen Flow Rate (L/min) 3 Oxygen Delivery Method Nasal Cannula Weight: 215 lb 7 oz Body Mass Index (BMI) 33.7 Finger Stick Blood Glucose 179 Intake and Output for Last 24 Hours 02/27/20 02/28/20 02/29/20 23:59 23:59 23:59 Intake Total 1999 4988.33 / 4988.33 3100 / 3100 Output Total 1100 / 1100 400 / 400 Balance 1999 3888.33 / 3888.33 2700 / 2700 Laboratory Results 02/28/20 17:02: POC Glucose 250 H 02/29/20 00:30: POC Glucose 143 H 02/29/20 06:00: WBC 5.5, RBC 3.83 L, Hgb 8.6 L, Hct 30.1 L, MCV 78.6 L, MCH 22.5 L, MCHC 28.6 L, RDW Std Deviation 44.8 H, RDW Coeff of Munir 15.9 H, Plt Count 218, MPV 9.1, Immature Gran % (Auto) 0.400, Neut % (Auto) 55.3, Lymph % (Auto) 32.2, [place] % (Auto) 10.3 H, Eos % (Auto) 1.3, Baso % (Auto) 0.5, Absolute Neuts (auto) 3.0, Absolute Lymphs (auto) 1.76, Nucleated RBC % 0 02/29/20 06:00: Sodium 142, Potassium 3.1 L, Chloride 112 H, Carbon Dioxide 24.0, Anion Gap 6, BUN 8, Creatinine 0.56, Estim Creat Clear Calc 118.17, Est GFR (MDRD) Af Amer 149, Est GFR (MDRD) Non-Af 123, BUN/Creatinine Ratio 14.4, Glucose 140 H, Calcium 7.4 L, Total Bilirubin 0.80, AST 108 H, ALT 292 H, Alkaline Phosphatase 135 H, Total Protein 5.6 L, Albumin 2.4 L, Globulin 3.2, Albumin/Globulin Ratio 0.8 L, Lipase 466 H 02/29/20 06:18: POC Glucose 148 H 02/29/20 13:53: POC Glucose 185 H Current Medications Acetaminophen (Tylenol) 650 mg PO Q6H PRN PRN PRN Reason: Pain Score 1-10/Temp > 100.7 F Albuterol Sulfate (Ventolin Aerosols) 2.5 mg INHALATION Q2H PRN PRN PRN Reason: Shortness of Breath/Wheezing Dextrose (D50w Syringe) 0 gm IV X1 PRN; Protocol PRN Reason: Hypoglycemia Glucagon () 1 mg IM .X1 PRN PRN Reason: Hypoglycemia Sodium Chloride () 1,000 mls @ 150 mls/hr IV .Q6H40M [facility] Last Admin: 02/29/20 10:54 Dose: 150 mls/hr Documented by: Lactated Ringer's () 1,000 mls @ 100 mls/hr IV .Q10H [facility] Last Admin: 02/29/20 13:30 Dose: 100 mls/hr Documented by: Insulin Human Lispro (Humalog Kwikpen (Bkc)) 0 unit SC Q6 PENNY; Protocol Last Admin: 02/29/20 06:30 Dose: Not Given Documented by: Morphine Sulfate () 2 mg IV Q3H PRN PRN PRN Reason: Pain Score 6-10/10 Ondansetron HCl (Zofran) 4 mg IV Q8H PRN PRN PRN Reason: NAUSEA/VOMITING Oxycodone HCl (Oxyir) 5 mg PO Q4H PRN PRN PRN Reason: Pain Score 4-5/10 Prochlorperazine Edisylate (Compazine Iv) 5 mg IV Q4H PRN PRN PRN Reason: Breakthrough nausea/vomiting Sodium Chloride () 10 - 40 ml IV UD PRN PRN Reason: SALINE FLUSH Last Admin: 02/28/20 05:52 Dose: 10 ml Documented by: Discharge Diet: Light diet - advance as tolerated Discharge Activity: Return to Normal Activity, May Not Drive - for 2-3 days or while taking narcotic pain medicataions., - - Do not drive, work heavy equipment or sign legal documents for 24 hours. May shower in (days): 1 - with the bandage in place. Additional Activity Instructions:: Pain medication may cause nausea. You should typically eat light foods as you take your pain medications. Pain medication may also cause constipation. If this is a problem for you, please discuss with your doctor. Call your doctor if your incision/area has: Continuous Slow Oozing, Sudden Increased Bleeding, Increased Pain/ Swelling, Increased Redness, Foul Smelling Discharge, Fever of 101 or Higher Call your doctor if you observe: Fever of 101 or Higher Suture Line Care: Avoid Pulling/Pushing, Avoid Pinching/Bending Additional Dressing/Incision Instructions:: Leave operative bandaids on for 2 days. When you remove dressing, leave Steri-Strips on until your follow-up appointment, or until the Steri-Strips fall off on their own. Home Medications: Medications to take at Discharge metformin 500 mg tablet 500 mg PO BID 11/07/17 Acetaminophen [Tylenol Tablet] 650 mg PO Q6H PRN PRN tab 02/29/20 Oxycodone [Oxyir] 5 mg PO Q4H PRN PRN 5 Days #30 tab 02/29/20 Following Prescriptions Were Given to Patient: Oxycodone [Oxyir] 5 mg PO Q4H PRN PRN 5 Days #30 tab PRN Reason: Pain Score 4-5/10 Transmission Status: Received by [facility] Primary Care Physician: Elva Lee MD [Primary Care Provider] - Please follow up with your Primary Care Physician in: 1 Week Please Follow Up With: Jimmy Botello MD When: Please call to schedule 2 week follow up appointment. [phone] Disposition: Home Minutes spent on discharge:: 35 Patient Condition:: Stable Medical Necessity - Tobacco Use Smoking Status: Never smoker Tobacco Use: Non-smoker Meaningful Use Info Meaningful Use Diagnoses (Choose all that apply): None applicable <Shayan Arriola - Last Filed: 02/29/20 17:08> Discharge Date and Diagnosis - Secondary Discharge Diagnosis Chronic Problems: Chronic Problems (Last Reviewed 12/23/17 @ 13:31 by Rolanda Vieyra) Type 2 diabetes mellitus without complication, without long-term current use of insulin (Chronic) Doing very well. Diet and exercise as discussed. Is pleased as well as she should be with her progress. no change is needed.Will update lab. contnue with current regimen. BP in range Hospital Course and Treatment Imaging Results: 02/29/20 12:49 Cholangiogram/ O R,Initial [RAD] Routine O.R. Fluoro for C-Arm [RAD] Routine Summary of Care Provided: The patient is a 49 year old F [] - Physical Exam Vitals/I&O's: Vital Signs Temp Pulse Resp BP Pulse Ox 97.4 F L 69 14 102/64 98 02/29/20 16:00 02/29/20 16:00 02/29/20 16:00 02/29/20 16:00 02/29/20 16:00 Oxygen Flow Rate (L/min) 3 Oxygen Delivery Method Nasal Cannula Weight: 215 lb 7 oz Body Mass Index (BMI) 33.7 Finger Stick Blood Glucose 185 Intake and Output for Last 24 Hours 02/27/20 02/28/20 02/29/20 23:59 23:59 23:59 Intake Total 1999 4988.33 / 4988.33 3100 / 3100 Output Total 1100 / 1100 400 / 400 Balance 1999 3888.33 / 3888.33 2700 / 2700 Laboratory Results 02/28/20 17:02: POC Glucose 250 H 02/29/20 00:30: POC Glucose 143 H 02/29/20 06:00: WBC 5.5, RBC 3.83 L, Hgb 8.6 L, Hct 30.1 L, MCV 78.6 L, MCH 22.5 L, MCHC 28.6 L, RDW Std Deviation 44.8 H, RDW Coeff of Munir 15.9 H, Plt Count 218, MPV 9.1, Immature Gran % (Auto) 0.400, Neut % (Auto) 55.3, Lymph % (Auto) 32.2, [place] % (Auto) 10.3 H, Eos % (Auto) 1.3, Baso % (Auto) 0.5, Absolute Neuts (auto) 3.0, Absolute Lymphs (auto) 1.76, Nucleated RBC % 0 02/29/20 06:00: Sodium 142, Potassium 3.1 L, Chloride 112 H, Carbon Dioxide 24.0, Anion Gap 6, BUN 8, Creatinine 0.56, Estim Creat Clear Calc 118.17, Est GFR (MDRD) Af Amer 149, Est GFR (MDRD) Non-Af 123, BUN/Creatinine Ratio 14.4, Glucose 140 H, Calcium 7.4 L, Total Bilirubin 0.80, AST 108 H, ALT 292 H, Alkaline Phosphatase 135 H, Total Protein 5.6 L, Albumin 2.4 L, Globulin 3.2, Albumin/Globulin Ratio 0.8 L, Lipase 466 H 02/29/20 06:18: POC Glucose 148 H 02/29/20 13:53: POC Glucose 185 H Current Medications Acetaminophen (Tylenol) 650 mg PO Q6H PRN PRN PRN Reason: Pain Score 1-10/Temp > 100.7 F Albuterol Sulfate (Ventolin Aerosols) 2.5 mg INHALATION Q2H PRN PRN PRN Reason: Shortness of Breath/Wheezing Dextrose (D50w Syringe) 0 gm IV X1 PRN; Protocol PRN Reason: Hypoglycemia Glucagon () 1 mg IM .X1 PRN PRN Reason: Hypoglycemia Insulin Human Lispro (Humalog Kwikpen (Bkc)) 0 unit SC Q6 PENNY; Protocol Last Admin: 02/29/20 15:50 Dose: Not Given Documented by: Morphine Sulfate () 2 mg IV Q3H PRN PRN PRN Reason: Pain Score 6-10/10 Ondansetron HCl (Zofran) 4 mg IV Q8H PRN PRN PRN Reason: NAUSEA/VOMITING Oxycodone HCl (Oxyir) 5 mg PO Q4H PRN PRN PRN Reason: Pain Score 4-5/10 Prochlorperazine Edisylate (Compazine Iv) 5 mg IV Q4H PRN PRN PRN Reason: Breakthrough nausea/vomiting Sodium Chloride () 10 - 40 ml IV UD PRN PRN Reason: SALINE FLUSH Last Admin: 02/28/20 05:52 Dose: 10 ml Documented by: Addendum: Dr. Arriola I personally examined the patient and reviewed the chart. I agree with the above. 49-year-old female presents to the hospital with abdominal pain found to have gallstone pancreatitis. She underwent an ERCP to remove the stone and underwent a cholecystectomy today 02/29/2020. Prior to the cholecystectomy she felt great and was hoping to go home today. She did well after surgery and tolerated diet. Her pain this morning prior to surgery had been resolved. She would like to go home and she will need to have outpatient follow-up with her PCP as well as general surgery. I discussed with her the risk benefits of discharge today and she expressed understanding. Inpatient E&M: [id number] Disch Hosp
[2020-02-29] MEDS: 0.9% Saline Lock 10 ML Syringe IV (17:08)
[2020-02-29] MEDS: Morphine 2 MG/ML Syringe IV (17:08)
[2020-02-29] MEDS: Insulin Lispro 100 UNIT/ML INSULN.PEN SC (17:15)
[2020-02-29 17:46] LABS: Bedside Glucose 199 mg/dL (70-110)
[2020-02-29] MEDS: Acetaminophen 325 MG Tablet 650 MG PO (23:53)
[2020-03-01 00:01] LABS: Bedside Glucose 127 mg/dL (70-110)
[2020-03-01 03:51] VITALS: BP 117/64; PULSE 81; RESP 16; TEMP 36.7; O2SAT 96
[2020-03-01] MEDS: Acetaminophen 325 MG Tablet 650 MG PO (06:14)
[2020-03-01 06:41] LABS: Bedside Glucose 116 mg/dL (70-110)
[2020-03-01 07:35] VITALS: BP 125/65; PULSE 69; RESP 14; TEMP 36.9; O2SAT 99
== END 2020-03-01 08:42 | disposition home or self-care (01) | DRG 419 ==
LOC: ED 21:02 → MS3 22:47
PROVIDERS: Anesthesiology; Student in an Organized Health Care Education/Training Program; Surgery; Admitting Provider Internal Medicine; Emergency Provider Emergency Medicine; PCP Family Medicine; Referring Provider Internal Medicine; Visit Provider Family Medicine
PROC: 0F798ZZ Dilation of Common Bile Duct, Via Natural or Artificial Opening Endoscopic (ICD-10-PCS; CPT 43260; principal; 2020-02-28 07:30)
PROC: 0FT44ZZ Resection of Gallbladder, Percutaneous Endoscopic Approach (ICD-10-PCS; CPT 47610; principal; 2020-02-29 12:45)
DX: K85.10 Biliary acute pancreatitis without necrosis or infection (principal); E11.65 Type 2 diabetes mellitus with hyperglycemia; E87.6 Hypokalemia; Z83.3 Family history of diabetes mellitus; Z82.3 Family history of stroke; J30.2 Other seasonal allergic rhinitis; K80.70 Calculus of gallbladder and bile duct without cholecystitis without obstruction
CPT/HCPCS: 36415; 74300; 74330; 76000; 76705; 80053; 80061; 81025; 82962; 83036; 83690; 83735; 85025; 85610; 85730; 88304; 93005; 99251; 99285; J7030; J7120; A4216; G0463; J2405